=== PATIENT | male | born 1970 | race Caucasian/White ===

== ENCOUNTER → 2019-08-12 12:28 | Outpatient (CLI) | payer SELFPAY | PROVIDERS: PCP Family Medicine; Visit Provider Nurse Practitioner Family | DX: Z02.4 Encounter for examination for driving license (principal) ==

== ENCOUNTER 2020-12-23 23:00 | Inpatient (IN) | payer BC, SELFPAY ==
[2020-12-23 23:13] VITALS: BP 138/98; PULSE 104; RESP 22; TEMP 36.8; O2SAT 99; BMI 20.9
--- NOTE | 2020-12-23 23:22 | CT_ITS ---
PROCEDURE: CT ABDOMEN PELVIS W CON CLINICAL INDICATION: Abd pain Cramping, nausea and vomiting COMPARISON: No exams were available for comparison TECHNIQUE: IV Contrast: 75ML Isovue 370 Oral Contrast None Axial images obtained with sagittal and coronal reformats. All CT scans at the facility use one or more dose reduction, viz: automated exposure control, ma/kV adjustment per patient size (including targeted exams where dose is matched to indication, i.e. head), or iterative reconstruction technique. FINDINGS: LOWER THORAX: Bilateral lower lobe tree in bud like nodular opacities ABDOMEN & PELVIS: Prior cholecystectomy. At least 4 hypodense lesions which may represent hepatics cyst. Small hiatal hernia. The spleen, adrenal glands, pancreas, have an unremarkable appearance. There is a nonobstructing 3 mm stone in the mid polar region of the left kidney. No hydronephrosis. No ureteral calculi. No evidence of appendicitis. There surgical clips in the right lower quadrant. The small bowel is distended with air-fluid levels. Transition point is present in the right mid abdominal region best seen on image 60 series 3 and image 31 series 601. Distal small bowel loops are nondistended. No evidence of pneumatosis or portal venous gas. No abscess. No free air. Small bowel loops measure up to 3.7 cm in diameter. No acute bony findings. There is partial fusion of T11-T12 with mild kyphosis at that level. There are few colonic diverticula but no evidence of diverticulitis. Colonic diverticulosis. No evidence of diverticulitis. IMPRESSION: 1. Findings are compatible with small bowel obstruction moderate grade with transition point in the right mid abdominal region in the mid ileal region. 2. Left nephrolithiasis 3. Small hiatal hernia. 4. Bilateral lower lobe tree in bud opacities consistent with pneumonia Dictated by: Kit Cornejo MD 12/24/2020 06:09 Kit Cornejo MD in [place] 12/24/2020 06:09
[2020-12-23 23:27] LABS: Basophils # 0.1 K/mm3 (0-0.2); Basophils % 0.3 % (0.1-2.0); Eosinophils # 0.2 K/mm3 (0.0-0.4); Eosinophils % 0.9 % (0.1-12.0); Hematocrit 52.5 % (42.0-52.0); Hemoglobin 17.3 g/dL (14.1-18.0); Lymphocytes # 1.5 K/mm3 (0.7-4.5); Lymphocytes % 6.9 % (10-50); Mean Corpuscular HGB Conc 32.9 g/dL (31.8-35.4); Mean Corpuscular Hemoglobin 28.3 pg (27.0-31.2); Mean Corpuscular Volume 86.1 fl (80-94); Mean Platelet Volume 8.6 fl (7.4-10.4); Monocytes # 0.5 K/mm3 (0.1-1.0); Monocytes % 2.2 % (1.7-9.3); Neutrophils # 19.8 K/mm3 (1.8-7.8); Neutrophils % 89.6 % (37.0-80.0); Platelet Count 321 K/mm3 (142-424); Red Cell Distribution Width 13.7 % (11.5-17.5)
[2020-12-23 23:30] LABS: Chloride 104 mmol/L (98-107); Sodium 141 mmol/L (136-145)
[2020-12-23 23:31] LABS: Potassium 4.3 mmoL/L (3.5-5.1); White Blood Count 22.1 K/mm3 (4.8-10.8)
[2020-12-23 23:32] VITALS: BP 132/93; PULSE 85; O2SAT 99
[2020-12-23 23:33] LABS: Alanine Aminotransferase 27 U/L (12-78); Alkaline Phosphatase 66 U/L (38-126); Amylase 131 U/L (30-110); Anion Gap 13.3 mEq/L (5-15); Aspartate Amino Transferase 30 U/L (17-59); Bilirubin,Total 0.9 mg/dl (0.2-1.3); Blood Urea Nitrogen 15 mg/dl (9-20); Carbon Dioxide 28 mmol/L (22.0-30.0); Creatinine Clearance Estimated 54 mL/min (50-200); Estimated Glomerular Filt Rate 54 ml/min (>60); GFR (African American) 65 ML/MIN (>60); MANUAL DIFFERENTIAL MANUAL DIFFERENTIAL (MANUAL DIFF)
[2020-12-23 23:34] LABS: Albumin Level 5.4 g/dl (3.5-5.0); Albumin/Globulin Ratio 1.9 (1.1-1.8); Calcium 11.5 mg/dl (8.4-10.2); Globulin 2.8 g/dL (1.3-3.2); Glucose 145 mg/dl (74-100); Lipase 86 U/L (23-300); Total Protein,Serum 8.2 g/dl (6.3-8.2)
[2020-12-23 23:39] LABS: C-Reactive Protein 1.3 mg/L (0-4)
[2020-12-23 23:54] LABS: Lactic Acid 2.1 mmol/L (0.7-2.1)
[2020-12-23 23:56] LABS: Erythrocyte Sedimentation Rate 3 mm/hr (0-15)
[2020-12-23 23:58] LABS: Lymphocytes % 9 % (10-50); Neutrophils % 88 % (42-76); Platelet Estimate Normal; RBC Morphology Normal; Total Cells Counted 100; Toxic Granulation 1+
[2020-12-24] VITALS (11 sets, daily range): BP systolic 107–140; BP diastolic 56–84; PULSE 63–89; RESP 15–18; TEMP 36.6–36.9; O2SAT 95–99; BMI 19.5
[2020-12-24] LABS: Procalcitonin 0.075 ng/mL (0.0-2.0)
--- NOTE | 2020-12-24 00:14 | HMH.EDNVD ---
ED Disposition Clinical Impression: Small bowel obstruction, SIRS (systemic inflammatory response syndrome) Disposition: Admitted As Inpatient Condition on Discharge: Good Instructions: DI for Acute Abdominal Pain Referrals: Dante Ramirez [Primary Care Provider] - - Critical Care Critical Care Time: No Attestation: On 12/23/20, the high probability of a clinically significant, sudden or life threatening deterioration of the following system(s) required my full and direct attention, intervention and personal management. The time I documented below is in addition to time spent performing reported procedures but includes the following listed in this critical care notation. Medical Decision Making - Medical Records Medical records reviewed: Yes: I reviewed the patient's medical records. - Sg Inquiry Pt receiving controlled substance: No Vital Signs: 12/23/20 23:13 12/23/20 23:32 12/24/20 00:02 Temperature 98.3 F Temperature Source Oral Pulse Rate [Right] 104 H 85 89 Respiratory Rate 22 Blood Pressure [Right Arm] 138/98 H 132/93 H 137/84 Blood Pressure Mean [Right Arm] 111 106 101 Blood Pressure Source [Right Arm] Automatic Cuff Blood Pressure Position [Right Arm] Supine 02 Sat by Pulse Oximetry 99 99 97 Oxygen Delivery Method Room Air 12/24/20 00:32 12/24/20 01:00 12/24/20 01:30 Temperature Temperature Source Pulse Rate [Right] 76 76 78 Respiratory Rate 15 Blood Pressure [Right Arm] 135/74 135/74 124/65 Blood Pressure Mean [Right Arm] 94 94 84 Blood Pressure Source [Right Arm] Automatic Cuff Blood Pressure Position [Right Arm] Supine 02 Sat by Pulse Oximetry 96 96 96 Oxygen Delivery Method Room Air - Lab Data Lab results reviewed: Yes: I reviewed the patient's lab results. Lab Results 12/23/20 23:14: WBC 22.1 H*, RBC 6.10, Hgb 17.3, Hct 52.5 H, MCV 86.1, MCH 28.3, MCHC 32.9, RDW 13.7, Plt Count 321, MPV 8.6, Neut % (Auto) 89.6 H, Lymph % (Auto) 6.9 L, [place] % (Auto) 2.2, Eos % (Auto) 0.9, Baso % (Auto) 0.3, Neut # (Auto) 19.8 H, Lymph # (Auto) 1.5, [place] # (Auto) 0.5, Eos # (Auto) 0.2, Baso # (Auto) 0.1, Total Counted 100, Neutrophils % (Manual) 88 H, Band Neutrophils % 3.0, Lymphocytes % (Manual) 9 L, Toxic Granulation 1+, Platelet Estimate Normal, RBC Morphology Normal, ESR 3 12/23/20 23:14: Sodium 141, Potassium 4.3, Chloride 104, Carbon Dioxide 28, Anion Gap 13.3, BUN 15, Creatinine 1.40 H, Estimated Creat Clear 54, Estimated GFR 54 L, Est GFR ( Amer) 65, Glucose 145 H, Calcium 11.5 H, Total Bilirubin 0.9, AST 30, ALT 27, Alkaline Phosphatase 66, C-Reactive Protein 1.3, Total Protein 8.2, Albumin 5.4 H, Globulin 2.8, Albumin/Globulin Ratio 1.9 H, Amylase 131 H, Lipase 86, Procalcitonin 0.075 12/23/20 23:30: Lactate 2.1 Result diagrams: 12/23/20 23:14 12/23/20 23:14 Orders (Tests/Meds): ED MEDICATIONS Generic Name Dose Route Start Last Admin Trade Name Freq PRN Reason Stop Dose Admin Sodium Chloride 1,000 mls @ 999 mls/hr 12/23/20 23:30 12/23/20 23:34 Sod Chlor 0.9% 1000ml Bag IV 12/24/20 00:30 999 mls/hr .Q1H1M JENNIFER Administration Sodium Chloride 8 ml 12/23/20 23:22 Sodium Chloride 0.9% 10ml Vial IV 01/22/21 23:21 NEEDED PRN dilute pepcid Discontinued Medications Generic Name Dose Route Start Last Admin Trade Name Freq PRN Reason Stop Dose Admin Famotidine 20 mg 12/23/20 23:22 12/23/20 23:33 Famotidine 20mg/2ml Vial IV 12/23/20 23:23 20 mg ONCE ONE Administration Hydromorphone HCl 1 mg 12/24/20 00:21 12/24/20 00:25 Hydromorphone 2mg/Ml Syringe IV 12/24/20 00:22 1 mg ONCE ONE Administration Iopamidol 70 ml 12/23/20 23:58 12/23/20 23:58 Iopamidol-370 (76%);100ml Bottle IV 12/23/20 23:59 70 ml ONCE ONE Administration Ketorolac Tromethamine 30 mg 12/23/20 23:22 12/23/20 23:33 Ketorolac 30mg/Ml Vial IV 12/23/20 23:23 30 mg ONCE ONE Administration Metoclopramide HCl 10 m
[2020-12-24 03:03] LABS: Reflex Lactic Add Lactic Reflex
--- NOTE | 2020-12-24 03:13 | PC.NURSE ---
patient up to floor via wheelchair.
[2020-12-24 03:20] LABS: Lactic Acid Follow Up (RFLX 1) 0.9 mmol/L (0.7-2.1)
--- NOTE | 2020-12-24 05:11 | PC.NURSE ---
pt has been resting since arriving to floor, was uncooperative with admission process and refused to verbally answer questions, has not requested any PRN medications since arriving to floor, abdomen is soft and tender, bowel sounds active
[2020-12-24 06:20] LABS: Anion Gap 9.7 mEq/L (5-15); Blood Urea Nitrogen 17 mg/dl (9-20); Carbon Dioxide 27 mmol/L (22.0-30.0); Chloride 107 mmol/L (98-107); Creatinine Clearance Estimated 54 mL/min (50-200); Estimated Glomerular Filt Rate 59 ml/min (>60); GFR (African American) 71 ML/MIN (>60); Glucose 105 mg/dl (74-100); Potassium 4.7 mmoL/L (3.5-5.1); Sodium 139 mmol/L (136-145)
[2020-12-24 06:31] LABS: Basophils # 0.1 K/mm3 (0-0.2); Basophils % 0.4 % (0.1-2.0); Eosinophils # 0.2 K/mm3 (0.0-0.4); Eosinophils % 1.1 % (0.1-12.0); Hematocrit 42.6 % (42.0-52.0); Lymphocytes # 1.6 K/mm3 (0.7-4.5); Lymphocytes % 10.9 % (10-50); Mean Corpuscular HGB Conc 32.8 g/dL (31.8-35.4); Mean Corpuscular Hemoglobin 28.4 pg (27.0-31.2); Mean Corpuscular Volume 86.6 fl (80-94); Mean Platelet Volume 8.4 fl (7.4-10.4); Monocytes # 0.8 K/mm3 (0.1-1.0); Monocytes % 5.3 % (1.7-9.3); Neutrophils % 82.3 % (37.0-80.0); Platelet Count 241 K/mm3 (142-424); Red Blood Count 4.91 M/mm3 (4.60-6.20); Red Cell Distribution Width 13.8 % (11.5-17.5); White Blood Count 14.6 K/mm3 (4.8-10.8)
[2020-12-24 06:48] LABS: Hemoglobin 13.9 g/dL (14.1-18.0)
--- NOTE | 2020-12-24 07:21 | HMH.PHAVTE ---
[facility] Pharmacy VTE Monitoring - Patient Demographics Admission date: 12/24/20 Report Date: 12/24/20 Time: 07:21 Allergies/Adverse Reactions: Patient Allergies No Known Allergies Allergy (Verified 12/24/20 03:36) Height: 1.68 m Weight: 55.338 kg Patient Problems: Current Active Problems Small bowel obstruction (Acute) SIRS (systemic inflammatory response syndrome) (Acute) - VTE Risk Labs: VTE Related Lab Results Hgb 13.9 g/dL (14.1-18.0) L D 12/24/20 05:47 Hct 42.6 % (42.0-52.0) 12/24/20 05:47 Plt Count 241 K/mm3 (142-424) 12/24/20 05:47 BUN 17 mg/dl (9-20) 12/24/20 05:47 Creatinine 1.30 mg/dl (0.66-1.25) H 12/24/20 05:47 Estimated Creat Clear 54 mL/min (50-200) 12/24/20 05:47 Was VTE Risk Assessment Performed: Yes VTE Score: 3 VTE Risk Level: Low Risk Clinical Trial Participant: No - Prophylaxis VTE Prophylaxis Ordered?: Yes Types of VTE Prophylaxis: TEDS Knee High
--- NOTE | 2020-12-24 08:36 | HMH.GSCON ---
*Admission Date: 12/24/20 *Reason for consult:: Possible small bowel obstruction *History of present illness: Patient is a 50-year-old male. He had presented to the emergency department yesterday with nausea, reported vomiting, and cramping abdominal pain. When asked how long the patient has had pain he states that he has had some degree of abdominal pain for 2 years. He underwent laparoscopic colon resection for diverticulitis. He is unsure as to where this was performed but he believes it was in [facility]. He was evaluated in the emergency department and found to have a leukocytosis. CT scan revealed findings suggestive of small bowel obstruction. He did have normal bowel movements yesterday. He states he has no pain at this time. Review of Systems - Review of Systems Review of systems:: pertinent systems reviewed and negative unless documented below - *Neurologic Denies localized weakness, Denies seizure-like activity [facility] History I have reviewed the patient's past medical history: Yes Medical History: Denies:: Cancer, Diabetes Mellitus Type 1, Diabetes Mellitus Type 2, MRSA *Have you ever received a pneumonia vaccine?: No *Have you received a flu vaccine this season?: No Amputation: No Fractures: No - *Social History Alcohol Intake: never *Occupational Status:: employed *Travel in the last 8 weeks: None Family Hx:: Unable to obtain Meds Home Medications Medication Instructions Recorded Confirmed Type No Known Home Medications 12/24/20 12/24/20 History Allergies Allergy/AdvReac Type Severity Reaction Status Date / Time No Known Allergies Allergy Verified 12/24/20 03:36 Exam Vital signs and Labs for Last 24 Hours: Temp Pulse Resp BP Pulse Ox 98.3 F 65 18 107/56 L 98 12/24/20 08:00 12/24/20 08:00 12/24/20 08:00 12/24/20 08:00 12/24/20 08:00 Laboratory Results - last 24 hr 12/23/20 23:14: WBC 22.1 H*, RBC 6.10, Hgb 17.3, Hct 52.5 H, MCV 86.1, MCH 28.3, MCHC 32.9, RDW 13.7, Plt Count 321, MPV 8.6, Neut % (Auto) 89.6 H, Lymph % (Auto) 6.9 L, [place] % (Auto) 2.2, Eos % (Auto) 0.9, Baso % (Auto) 0.3, Neut # (Auto) 19.8 H, Lymph # (Auto) 1.5, [place] # (Auto) 0.5, Eos # (Auto) 0.2, Baso # (Auto) 0.1, Total Counted 100, Neutrophils % (Manual) 88 H, Band Neutrophils % 3.0, Lymphocytes % (Manual) 9 L, Toxic Granulation 1+, Platelet Estimate Normal, RBC Morphology Normal, ESR 3 12/23/20 23:14: Sodium 141, Potassium 4.3, Chloride 104, Carbon Dioxide 28, Anion Gap 13.3, BUN 15, Creatinine 1.40 H, Estimated Creat Clear 54, Estimated GFR 54 L, Est GFR ( Amer) 65, Glucose 145 H, Calcium 11.5 H, Total Bilirubin 0.9, AST 30, ALT 27, Alkaline Phosphatase 66, C-Reactive Protein 1.3, Total Protein 8.2, Albumin 5.4 H, Globulin 2.8, Albumin/Globulin Ratio 1.9 H, Amylase 131 H, Lipase 86, Procalcitonin 0.075 12/23/20 23:30: Lactate 2.1 12/24/20 03:05: Lactate 0.9 12/24/20 05:47: WBC 14.6 H D, RBC 4.91, Hgb 13.9 L D, Hct 42.6, MCV 86.6, MCH 28.4, MCHC 32.8, RDW 13.8, Plt Count 241, MPV 8.4, Neut % (Auto) 82.3 H, Lymph % (Auto) 10.9, [place] % (Auto) 5.3, Eos % (Auto) 1.1, Baso % (Auto) 0.4, Neut # (Auto) 12.0 H, Lymph # (Auto) 1.6, [place] # (Auto) 0.8, Eos # (Auto) 0.2, Baso # (Auto) 0.1 12/24/20 05:47: Sodium 139, Potassium 4.7, Chloride 107, Carbon Dioxide 27, Anion Gap 9.7, BUN 17, Creatinine 1.30 H, Estimated Creat Clear 54, Estimated GFR 59, Est GFR ( Amer) 71, Glucose 105 H D, Calcium 9.0 D I & O for Last 24 hours: Intake & Output 12/21/20 12/22/20 12/23/20 12/24/20 11:59 11:59 11:59 11:59 Intake Total 1000 / 1000 Balance 1000 / 1000 Weight 122 lb Microbiology Reports for the Last 24 Hours: Microbiology 12/23/20 23:30 Nasopharyngeal Coronavirus COVID-19 PCR - Final - Constitutional no acute distress - *Routine HEENT Exam Head: Present: normocephalic Eye: Present: EOMI, PERRL ENT: Present: mucous membranes moist - *Routine Neck Exam Present: supple. Absent
--- NOTE | 2020-12-24 08:45 | HMH.HP ---
*Admission Date: 12/24/20 *Chief complaint: abd pain *History of present illness: 50-year-old male presented to the emergency department yesterday with nausea, reported vomiting, and cramping abdominal pain with 2 bm. Pt states pain in abd has been coming and going for a few years but recently it has gotten worse.pt states today was the worst he had. CT scan revealed findings suggestive of small bowel obstruction. Patient was admitted and surgery consult obtained. [facility] History I have reviewed the patient's past medical history: Yes Medical History: Denies:: Cancer, Diabetes Mellitus Type 1, Diabetes Mellitus Type 2, MRSA *Have you ever received a pneumonia vaccine?: No *Have you received a flu vaccine this season?: No Amputation: No Fractures: No - *Social History Alcohol Intake: never *Occupational Status:: employed *Travel in the last 8 weeks: None Family Hx:: Unable to obtain Review of Systems - Constitutional Denies anorexia, Denies chills - Eyes Denies change in vision - ENT Denies pain with swallowing - *Cardiovascular Denies chest pain with activity - *Respiratory Denies chest congestion - *Gastrointestinal Reports abdominal pain, Reports cramping, Reports nausea, Reports vomiting - *Genitourinary Denies urinary urgency - *Musculoskeletal Denies back pain - Integumentary/Breasts Denies skin pain - *Neurologic Denies abnormal movements, Denies localized weakness, Denies seizure-like activity - Psychiatric Denies anxiety - Endocrine Denies flushing - Hematologic/Lymphatic Denies enlarged lymph nodes - Allergic/Immunologic Denies lip swelling Meds Home Medications Medication Instructions Recorded Confirmed Type No Known Home Medications 12/24/20 12/24/20 History Allergies Allergy/AdvReac Type Severity Reaction Status Date / Time No Known Allergies Allergy Verified 12/24/20 03:36 Exam Vital signs and Labs for Last 24 Hours: Temp Pulse Resp BP Pulse Ox 98.3 F 65 18 107/56 L 98 12/24/20 08:00 12/24/20 08:00 12/24/20 08:00 12/24/20 08:00 12/24/20 08:00 Laboratory Results - last 24 hr 12/23/20 23:14: WBC 22.1 H*, RBC 6.10, Hgb 17.3, Hct 52.5 H, MCV 86.1, MCH 28.3, MCHC 32.9, RDW 13.7, Plt Count 321, MPV 8.6, Neut % (Auto) 89.6 H, Lymph % (Auto) 6.9 L, [place] % (Auto) 2.2, Eos % (Auto) 0.9, Baso % (Auto) 0.3, Neut # (Auto) 19.8 H, Lymph # (Auto) 1.5, [place] # (Auto) 0.5, Eos # (Auto) 0.2, Baso # (Auto) 0.1, Total Counted 100, Neutrophils % (Manual) 88 H, Band Neutrophils % 3.0, Lymphocytes % (Manual) 9 L, Toxic Granulation 1+, Platelet Estimate Normal, RBC Morphology Normal, ESR 3 12/23/20 23:14: Sodium 141, Potassium 4.3, Chloride 104, Carbon Dioxide 28, Anion Gap 13.3, BUN 15, Creatinine 1.40 H, Estimated Creat Clear 54, Estimated GFR 54 L, Est GFR ( Amer) 65, Glucose 145 H, Calcium 11.5 H, Total Bilirubin 0.9, AST 30, ALT 27, Alkaline Phosphatase 66, C-Reactive Protein 1.3, Total Protein 8.2, Albumin 5.4 H, Globulin 2.8, Albumin/Globulin Ratio 1.9 H, Amylase 131 H, Lipase 86, Procalcitonin 0.075 12/23/20 23:30: Lactate 2.1 12/24/20 03:05: Lactate 0.9 12/24/20 05:47: WBC 14.6 H D, RBC 4.91, Hgb 13.9 L D, Hct 42.6, MCV 86.6, MCH 28.4, MCHC 32.8, RDW 13.8, Plt Count 241, MPV 8.4, Neut % (Auto) 82.3 H, Lymph % (Auto) 10.9, [place] % (Auto) 5.3, Eos % (Auto) 1.1, Baso % (Auto) 0.4, Neut # (Auto) 12.0 H, Lymph # (Auto) 1.6, [place] # (Auto) 0.8, Eos # (Auto) 0.2, Baso # (Auto) 0.1 12/24/20 05:47: Sodium 139, Potassium 4.7, Chloride 107, Carbon Dioxide 27, Anion Gap 9.7, BUN 17, Creatinine 1.30 H, Estimated Creat Clear 54, Estimated GFR 59, Est GFR ( Amer) 71, Glucose 105 H D, Calcium 9.0 D I & O for Last 24 hours: Intake & Output 12/21/20 12/22/20 12/23/20 12/24/20 11:59 11:59 11:59 11:59 Intake Total 1000 / 1000 Balance 1000 / 1000 Weight 122 lb Microbiology Reports for the Last 24 Hours: Microbiology 12/23/20 23:30 Nasophary
--- NOTE | 2020-12-24 18:07 | PC.NURSE ---
HE IS AO, DOES NOT REQUIRE O2 SUPPORT, ONE EPISODE OF N/V THIS SHIFT, MEDICATED WITH PRN ZOFRAN PER MAR WITH GOOD EFFECTIVENESS, USES URINAL INDEPENDENTLY. NO BM NOTED.
[2020-12-25 04:00] VITALS: BP 124/66; PULSE 88; RESP 17; TEMP 36.5; O2SAT 97
[2020-12-25 05:14] VITALS: BMI 19.5
--- NOTE | 2020-12-25 05:46 | PC.NURSE ---
shift summary pts lung sounds are clear with sats maintained 95% or above on room air witha a rate ranging from 16-18. pt is alert andoriented X4. pt denies pain, nausea, vomiting, or diarrhea. pt states when he drinks anything his stomach starts to cramp, but does have active bowel sounds.
--- NOTE | 2020-12-25 06:45 | HMH.GSPN ---
Subjective Narrative: Patient describes his abdomen being sore . He apparently did have vomiting with clear liquids last night. Does not have any NG tube. Progress Note: A&P (1) Small bowel obstruction Status: Acute (2) History of diverticulitis Status: Acute Assessment and Plan for All Diagnoses:: NPO. Plan for small bowel follow-through. May need nasogastric tube and possible operative intervention. Exam Vital signs and Labs for Last 24 Hours: Temp Pulse Resp BP Pulse Ox 97.7 F 88 17 124/66 97 12/25/20 04:00 12/25/20 04:00 12/25/20 04:00 12/25/20 04:00 12/25/20 04:00 Laboratory Results - last 24 hr 12/24/20 05:47: Hgb 13.9 L D 12/24/20 05:47: Calcium 9.0 D I & O for Last 24 hours: Intake & Output 12/22/20 12/23/20 12/24/20 12/25/20 11:59 11:59 11:59 11:59 Intake Total 1000 / 1000 720 / 720 Balance 1000 / 1000 720 / 720 Weight 122 lb 121 lb 15.99 oz Microbiology Reports for the Last 24 Hours: Microbiology 12/23/20 23:45 Blood Blood Culture - Preliminary 12/23/20 23:30 Nasopharyngeal Coronavirus COVID-19 PCR - Final - *Routine Abdominal Exam Comments: Tender in the right lower quadrant.
--- NOTE | 2020-12-25 06:46 | FL_ITS ---
PROCEDURE: FL SMALL BOWEL FOLLOW THROUGH CLINICAL INDICATION: BOWEL OBSTRUCTION identified on CT abdomen and pelvis study 12/24/2019 COMPARISON: CT CT ABDOMEN PELVIS W CON from 12/23/2020 FINDINGS: The rehabilitation manager film shows scattered stool and gas in the upper ascending colon, transverse, descending and sigmoid colon. Surgical clips are seen right upper quadrant likely from previous cholecystectomy. There is a 1 or 2 loops of mildly dilated small bowel in the mid abdomen. The initial films taken medially after drinking barium shows a small sliding hiatal hernia and grossly normal appearing stomach. Follow-up films show progression of barium through mildly dilated loops of proximal and mid small bowel. There appears to be a transition zone in the mid to lower right quadrant with normal caliber small bowel distal to this transition point. Barium reaches the cecum and ascending colon by 3 hours. A 4.5 hour delayed film was obtained showing barium contrast opacifying the ascending and transverse colon descending and somewhat redone appearing sigmoid colon. There is only a slight interval decrease in caliber dilated proximal and mid small bowel on the delayed images. IMPRESSION: Apparent interval resolution of partial mechanical small bowel obstruction likely secondary to adhesions right lower quadrant in view the patient's history of multiple previous surgeries. Dictated by: Dr. Christiano Hawkins MD 12/25/2020 13:20 Dr. Christiano Hawkins MD in [place] 12/25/2020 13:20
[2020-12-25 07:00] LABS: Basophils # 0.1 K/mm3 (0-0.2); Basophils % 0.5 % (0.1-2.0); Eosinophils # 0.3 K/mm3 (0.0-0.4); Eosinophils % 2.7 % (0.1-12.0); Hematocrit 40.5 % (42.0-52.0); Hemoglobin 13.5 g/dL (14.1-18.0); Lymphocytes # 1.6 K/mm3 (0.7-4.5); Mean Corpuscular HGB Conc 33.3 g/dL (31.8-35.4); Mean Corpuscular Hemoglobin 29.1 pg (27.0-31.2); Mean Corpuscular Volume 87.5 fl (80-94); Mean Platelet Volume 8.5 fl (7.4-10.4); Monocytes # 0.6 K/mm3 (0.1-1.0); Monocytes % 6.2 % (1.7-9.3); Neutrophils # 7.3 K/mm3 (1.8-7.8); Neutrophils % 74.6 % (37.0-80.0); Platelet Count 223 K/mm3 (142-424); Red Blood Count 4.63 M/mm3 (4.60-6.20); Red Cell Distribution Width 13.6 % (11.5-17.5); White Blood Count 9.7 K/mm3 (4.8-10.8)
[2020-12-25 07:21] LABS: Anion Gap 5.1 mEq/L (5-15); Blood Urea Nitrogen 14 mg/dl (9-20); Calcium 8.6 mg/dl (8.4-10.2); Carbon Dioxide 28 mmol/L (22.0-30.0); Chloride 109 mmol/L (98-107); Creatinine Clearance Estimated 59 mL/min (50-200); Estimated Glomerular Filt Rate 65 ml/min (>60); GFR (African American) 78 ML/MIN (>60); Glucose 94 mg/dl (74-100); Potassium 4.1 mmoL/L (3.5-5.1); Sodium 138 mmol/L (136-145)
[2020-12-25 08:00] VITALS: BP 110/55; PULSE 75; RESP 16; TEMP 36.9; O2SAT 98
--- NOTE | 2020-12-25 08:01 | PC.NURSE ---
pt to radiology at this time
--- NOTE | 2020-12-25 08:31 | HMH.ACPN2 ---
Internal Medicine - PN: Subj *Date: 12/25/20 *Time: 19:53 Interval history: 50-year-old patient sitting up and bed respirations are easy and even, he reports he feels a little bit better today still reports pain in right upper quadrant of abdomen. He is afebrile, oxygen saturations 98% on room air, will be going for small bowel follow-through today. Exam Vital signs and Labs for Last 24 Hours: Temp Pulse Resp BP Pulse Ox 97.7 F 88 17 124/66 97 12/25/20 04:00 12/25/20 04:00 12/25/20 04:00 12/25/20 04:00 12/25/20 04:00 Laboratory Results - last 24 hr 12/25/20 06:43: WBC 9.7 D, RBC 4.63, Hgb 13.5 L, Hct 40.5 L, MCV 87.5, MCH 29.1, MCHC 33.3, RDW 13.6, Plt Count 223, MPV 8.5, Neut % (Auto) 74.6, Lymph % (Auto) 16.0, [place] % (Auto) 6.2, Eos % (Auto) 2.7, Baso % (Auto) 0.5, Neut # (Auto) 7.3, Lymph # (Auto) 1.6, [place] # (Auto) 0.6, Eos # (Auto) 0.3, Baso # (Auto) 0.1 12/25/20 06:43: Sodium 138, Potassium 4.1, Chloride 109 H, Carbon Dioxide 28, Anion Gap 5.1, BUN 14, Creatinine 1.20, Estimated Creat Clear 59, Estimated GFR 65, Est GFR ( Amer) 78, Glucose 94, Calcium 8.6 I & O for Last 24 hours: Intake & Output 12/22/20 12/23/20 12/24/20 12/25/20 23:59 23:59 23:59 23:59 Intake Total 1720 / 1720 Balance 1720 / 1720 Weight 130 lb 122 lb 121 lb 15.99 oz Microbiology Reports for the Last 24 Hours: Microbiology 12/23/20 23:45 Blood Blood Culture - Preliminary - Constitutional no acute distress - *Routine HEENT Exam Head: Present: normocephalic Eye: Present: EOMI ENT: Present: mucous membranes moist - *Routine Neck Exam Present: trachea midline. Absent: tracheal deviation - *Routine Respiratory Exam Present: CTA bilaterally. Absent: accessory muscle use - *Routine Cardiovascular Exam Present: RRR - *Routine Abdominal Exam Present: soft, normoactive bowel sounds, tenderness. Absent: distended, firm Comments: Tenderness in RUQ - *Routine Extremities Exam Present: full ROM, pulses intact. Absent: cyanosis, clubbing, calf tenderness - *Routine Skin Exam Present: intact, dry, warm. Absent: cyanosis, erythema - *Routine Neurological Exam Present: alert, oriented X3, moving all extremities. Absent: altered mental status - Routine Psychiatric Exam Present: normal affect, normal thought process. Absent: auditory hallucinations, visual hallucinations Assessment and Plan (1) Small bowel obstruction Status: Acute Category: Medical Code(s): K56.609 - Unspecified intestinal obstruction, unspecified as to partial versus complete obstruction (2) History of diverticulitis Status: Acute Category: Medical Code(s): Z87.19 - Personal history of other diseases of the digestive system - Assessment and plan all Dx Assessment and Plan for all problems:: Rounded with Dr. Dawn, all orders per Dr. Dawn: 1. For small bowel follow-through this morning
--- NOTE | 2020-12-25 14:31 | PC.NURSE ---
PT HAS BEEN AOX4 T/O SHIFT, HE IS ABLE TO MAKE NEEDS KNOWN TO STAFF, HE HAS NOT REQUIRED O2 SUPPORT, HE DID C/O ABD PAIN THIS AM AND WAS MEDICATED WITH MORPHINE PRN PER MAR WITH GOOD EFFECTIVENESS NOTED, HE DENIES N/V/D AND HAS NOT HAD A BOWEL MOVEMENT, BOWEL SOUNDS ARE PRESENTX4, ABD IS SOFT AND TENDER ON PALPATION, PT HAS FAVORED LAYING ON HIS SIDE AND STATES THAT IT HELPS HIS PAIN, HE HAS BEEN USING THE URINAL AND TOILET FOR ELIMINATION AND AMBULATED WITH STANDBY ASSIST. NO NEEDS AT THIS TIME WILL CONTINUE TO MONITOR PT.
[2020-12-25 16:00] VITALS: BP 135/80; PULSE 92; RESP 16; TEMP 36.6; O2SAT 99
--- NOTE | 2020-12-25 16:54 | HMH.GSPN ---
Subjective Narrative: Patient still does complain of abdominal soreness. He has passed some gas and had a small bowel movement. I reviewed his small bowel follow-through with radiology. This reveals dramatic improvement with no evidence of any appreciable small bowel dilatation with contrast through to the colon with no evidence of any obstruction. Progress Note: A&P (1) Small bowel obstruction Status: Acute (2) History of diverticulitis Status: Acute Assessment and Plan for All Diagnoses:: Small bowel follow-through shows significant improvement with no evidence of any obstruction. However, given the patient's ongoing symptomatology we will plan for continued bowel rest for now. Possibly start a limited diet tomorrow if he continues to improve. Exam Vital signs and Labs for Last 24 Hours: Temp Pulse Resp BP Pulse Ox 98.4 F 75 16 110/55 L 98 12/25/20 08:00 12/25/20 08:00 12/25/20 08:00 12/25/20 08:00 12/25/20 08:00 Laboratory Results - last 24 hr 12/25/20 06:43: WBC 9.7 D, RBC 4.63, Hgb 13.5 L, Hct 40.5 L, MCV 87.5, MCH 29.1, MCHC 33.3, RDW 13.6, Plt Count 223, MPV 8.5, Neut % (Auto) 74.6, Lymph % (Auto) 16.0, [place] % (Auto) 6.2, Eos % (Auto) 2.7, Baso % (Auto) 0.5, Neut # (Auto) 7.3, Lymph # (Auto) 1.6, [place] # (Auto) 0.6, Eos # (Auto) 0.3, Baso # (Auto) 0.1 12/25/20 06:43: Sodium 138, Potassium 4.1, Chloride 109 H, Carbon Dioxide 28, Anion Gap 5.1, BUN 14, Creatinine 1.20, Estimated Creat Clear 59, Estimated GFR 65, Est GFR ( Amer) 78, Glucose 94, Calcium 8.6 I & O for Last 24 hours: Intake & Output 12/23/20 12/24/20 12/25/20 12/26/20 11:59 11:59 11:59 11:59 Intake Total 1000 / 1000 720 / 720 420 / 420 Output Total 0 / 0 Balance 1000 / 1000 720 / 720 420 / 420 Weight 122 lb 121 lb 15.99 oz Microbiology Reports for the Last 24 Hours: Microbiology 12/23/20 23:45 Blood Blood Culture - Preliminary - *Routine Abdominal Exam Present: soft, distended
[2020-12-25 19:32] VITALS: BP 144/92; PULSE 90; RESP 18; TEMP 36.7; O2SAT 96
[2020-12-26 04:00] VITALS: BP 123/82; PULSE 63; RESP 18; TEMP 36.3; O2SAT 98
--- NOTE | 2020-12-26 04:23 | PC.NURSE ---
pt has rested well throughout shift, pt is alert and oriented and able to make needs known, lungs remain clear, heart regular, bs hypoactive throughout, pt denies n/v/diarrhea this shift, pt does complain of abdominal tenderness in RLQ and around umbilicus, pt refused pain medication to treat abdominal tenderness, pt has remained npo, iv patent no distress noted will continue to monitor at this time
[2020-12-26 05:14] VITALS: BMI 20.2
--- NOTE | 2020-12-26 05:36 | PC.NURSE ---
pt taken to xray at this time via wheelchair
--- NOTE | 2020-12-26 05:58 | PC.NURSE ---
pt back from radiology at this time
--- NOTE | 2020-12-26 06:00 | XR_ITS ---
PROCEDURE: XR ABDOMEN MIN 2V CLINICAL INDICATION: Bowel obstruction COMPARISON: CR,RF FL SMALL BOWEL FOLLOW THROUGH from 12/25/2020 FINDINGS: Barium is present throughout the colon. Only minimal amount of contrast is present in the distal ileum which is nondistended. There are some gas-filled loops of small bowel in the upper abdomen which appear less distended. No evidence of free air. There has been a prior cholecystectomy. IMPRESSION: Oral contrast from the small-bowel series is now nearly exclusively in the large bowel. No definite evidence of small-bowel obstruction Dictated by: Kit Cornejo MD 12/26/2020 06:19 Kit Cornejo MD in [place] 12/26/2020 06:19
--- NOTE | 2020-12-26 06:55 | P.PN_ITS ---
Subjective Patient reports: feels better Narrative: Patient states that he feels a lot better. He did have a bowel movement this morning. This had relieved his discomfort. No nausea. Small bowel follow- through yesterday revealed no evidence of any obstruction. Follow-up films this morning reveal contrast completely through to the colon without any obstruction. Progress Note: A&P (1) Small bowel obstruction Status: Acute (2) History of diverticulitis Status: Acute Assessment and Plan for All Diagnoses:: I will go ahead and give a full liquid diet. If he tolerates this may be able to discharge soon. Exam Vital signs and Labs for Last 24 Hours: Temp Pulse Resp BP Pulse Ox 97.4 F L 63 18 123/82 98 12/26/20 04:00 12/26/20 04:00 12/26/20 04:00 12/26/20 04:00 12/26/20 04:00 Laboratory Results - last 24 hr 12/25/20 06:43: WBC 9.7 D, RBC 4.63, Hgb 13.5 L, Hct 40.5 L, MCV 87.5, MCH 29.1, MCHC 33.3, RDW 13.6, Plt Count 223, MPV 8.5, Neut % (Auto) 74.6, Lymph % (Auto) 16.0, [place] % (Auto) 6.2, Eos % (Auto) 2.7, Baso % (Auto) 0.5, Neut # (Auto) 7.3, Lymph # (Auto) 1.6, [place] # (Auto) 0.6, Eos # (Auto) 0.3, Baso # (Auto) 0.1 12/25/20 06:43: Sodium 138, Potassium 4.1, Chloride 109 H, Carbon Dioxide 28, Anion Gap 5.1, BUN 14, Creatinine 1.20, Estimated Creat Clear 59, Estimated GFR 65, Est GFR ( Amer) 78, Glucose 94, Calcium 8.6 I & O for Last 24 hours: Intake & Output 12/23/20 12/24/20 12/25/20 12/26/20 11:59 11:59 11:59 11:59 Intake Total 1000 / 1000 720 / 720 420 / 420 Output Total 0 / 0 Balance 1000 / 1000 720 / 720 420 / 420 Weight 122 lb 121 lb 15.99 oz 126 lb Microbiology Reports for the Last 24 Hours: Microbiology 12/23/20 23:45 Blood Blood Culture - Preliminary NO GROWTH AFTER 48 HOURS 12/23/20 23:45 Blood Blood Culture - Preliminary - *Routine Abdominal Exam Present: soft. Absent: tenderness
[2020-12-26 07:31] LABS: Basophils % 0.4 % (0.1-2.0); Eosinophils # 0.2 K/mm3 (0.0-0.4); Eosinophils % 3.2 % (0.1-12.0); Hematocrit 42.4 % (42.0-52.0); Hemoglobin 13.7 g/dL (14.1-18.0); Lymphocytes # 1.3 K/mm3 (0.7-4.5); Lymphocytes % 20.7 % (10-50); Mean Corpuscular HGB Conc 32.3 g/dL (31.8-35.4); Mean Corpuscular Hemoglobin 28.4 pg (27.0-31.2); Mean Corpuscular Volume 87.9 fl (80-94); Mean Platelet Volume 8.6 fl (7.4-10.4); Monocytes # 0.4 K/mm3 (0.1-1.0); Monocytes % 5.5 % (1.7-9.3); Neutrophils # 4.4 K/mm3 (1.8-7.8); Neutrophils % 70.3 % (37.0-80.0); Platelet Count 207 K/mm3 (142-424); Red Blood Count 4.82 M/mm3 (4.60-6.20); Red Cell Distribution Width 13.6 % (11.5-17.5); White Blood Count 6.3 K/mm3 (4.8-10.8)
[2020-12-26 07:37] LABS: Anion Gap 14.1 mEq/L (5-15); Blood Urea Nitrogen 14 mg/dl (9-20); Calcium 8.8 mg/dl (8.4-10.2); Carbon Dioxide 24 mmol/L (22.0-30.0); Chloride 105 mmol/L (98-107); Creatinine Clearance Estimated 73 mL/min (50-200); Estimated Glomerular Filt Rate 80 ml/min (>60); GFR (African American) 97 ML/MIN (>60); Glucose 76 mg/dl (74-100); Potassium 4.1 mmoL/L (3.5-5.1); Sodium 139 mmol/L (136-145)
[2020-12-26 08:00] VITALS: BP 150/82; PULSE 93; RESP 18; TEMP 36.8; O2SAT 97
--- NOTE | 2020-12-26 09:25 | HMH.DCSUM ---
General - General Admission date:: 12/24/20 Discharge date: 12/26/20 HPI HPI: 50-year-old male presented to the emergency department yesterday with nausea, reported vomiting, and cramping abdominal pain with 2 bm. Pt states pain in abd has been coming and going for a few years but recently it has gotten worse.pt states today was the worst he had. CT scan revealed findings suggestive of small bowel obstruction. Patient was admitted and surgery consult obtained. Hospital Course Hospital Course: 50-year-old male presented to the emergency department yesterday with nausea, reported vomiting, and cramping abdominal pain with 2 bm. Pt states pain in abd has been coming and going for a few years but recently it has gotten worse.pt states today was the worst he had. CT scan revealed findings suggestive of small bowel obstruction. Patient was admitted and surgery consult obtained. 12/23/20 Abd/Pelvis CT: IMPRESSION: 1. Findings are compatible with small bowel obstruction moderate grade with transition point in the right mid abdominal region in the mid ileal region. 2. Left nephrolithiasis 3. Small hiatal hernia. 4. Bilateral lower lobe tree in bud opacities consistent with pneumonia Dictated by: Clemente, 12/25/20 UGI and Small Bowel XR: FINDINGS: The law enforcement instructor film shows scattered stool and gas in the upper ascending colon, transverse, descending and sigmoid colon. Surgical clips are seen right upper quadrant likely from previous cholecystectomy. There is a 1 or 2 loops of mildly dilated small bowel in the mid abdomen. The initial films taken medially after drinking barium shows a small sliding hiatal hernia and grossly normal appearing stomach. Follow-up films show progression of barium through mildly dilated loops of proximal and mid small bowel. There appears to be a transition zone in the mid to lower right quadrant with normal caliber small bowel distal to this transition point. Barium reaches the cecum and ascending colon by 3 hours. A 4.5 hour delayed film was obtained showing barium contrast opacifying the ascending and transverse colon descending and somewhat redone appearing sigmoid colon. There is only a slight interval decrease in caliber dilated proximal and mid small bowel on the delayed images. IMPRESSION: Apparent interval resolution of partial mechanical small bowel obstruction likely secondary to adhesions right lower quadrant in view the patient's history of multiple previous surgeries. Dictated by: Shruthi, 12/26/20 Abd XR: FINDINGS: Barium is present throughout the colon. Only minimal amount of contrast is present in the distal ileum which is nondistended. There are some gas-filled loops of small bowel in the upper abdomen which appear less distended. No evidence of free air. There has been a prior cholecystectomy. IMPRESSION: Oral contrast from the small-bowel series is now nearly exclusively in the large bowel. No definite evidence of small-bowel obstruction Dictated by: Clemente, Lab work today is all unremarkable Patient sitting up in bed denies any abdominal pain reports he is feeling better is passing gas and has had 2 bowel movements during the night. He reports he would like to go home, discharge discussed with patient, he has tolerated a regular diet without any difficulties and denies any pain or nausea. Gen Surg has seen and recommends: Patient states that he feels a lot better. He did have a bowel movement this morning. This had relieved his discomfort. No nausea. Small bowel follow-through yesterday revealed no evidence of any obstruction. Follow-up films this morning reveal contrast completely through to the colon without any obstruction. Plan: 1. We will discharge home 2. Follow-up with PCP in 2 weeks Objective Vital signs: Temp Pulse Resp BP Pulse Ox 98.2 F 93 H 18 150/82 H 97 12/26/20 08:00
--- NOTE | 2020-12-26 12:42 | DIET.NUTRFU ---
Pt tolerating full liquids well, denies abdominal s/s. Has had a BM. Pt has received diet education for low fiber/residue diet and encouraged to reach out with questions/concerns any time post dc.
== END 2020-12-26 13:30 | disposition home or self-care (01) | DRG 390 ==
LOC: ER 23:23 → 2ND 12-24 01:44
PROVIDERS: Nurse Practitioner Family; Admitting Provider Emergency Medicine; Emergency Provider Emergency Medicine; PCP Family Medicine; Visit Provider Emergency Medicine
DX: K56.690 Other partial intestinal obstruction (principal); Z90.49 Acquired absence of other specified parts of digestive tract
CPT/HCPCS: 36415; 74019; 74177; 74250; 80048; 80053; 82150; 83605; 83690; 84145; 85007; 85025; 85651; 86140; 87040; 87077; 87186; 96365; 96375; 99285; J2405; Q9967; U0003

== ENCOUNTER 2022-06-08 12:53 | Emergency (ER) | payer OTHER, SELFPAY ==
[2022-06-08 12:54] VITALS: BP 114/71; PULSE 92; RESP 18; TEMP 38.4; O2SAT 99; BMI 20.9
--- NOTE | 2022-06-08 12:56 | PC.NURSE ---
pt ambulatory to ED room 8 without complications from waiting room area
--- NOTE | 2022-06-08 12:59 | ECG_ITS ---
APPROVED REPORT Exam: Resting ECG HR:93 bpm ECG Measurements Heart Rate 93 AXES CO 138 P 80 QRSd 88 QRS 92 QT 329 T 73 QTc 379 Conclusion SINUS RHYTHM BORDERLINE RIGHT AXIS DEVIATION [QRS AXIS > 90] BORDERLINE ECG UNCONFIRMED REPORT Electronically signed by : Remy Li MD 06/08/2022 19:02:33
--- NOTE | 2022-06-08 13:05 | PC.NURSE ---
Patient is refusing to have covid swab done. ER MD is aware
[2022-06-08 13:15] VITALS: PULSE 92; O2SAT 99
--- NOTE | 2022-06-08 13:39 | HMH.EDGENADL ---
ED Disposition Clinical Impression: Vasovagal syncope Disposition: Home, Self-Care Condition on Discharge: Good Additional Instructions: Follow-up with your primary care provider regarding this visit to the emergency department and follow-up on kidney function and dehydration. If you have any other concerning symptoms, return to the emergency department or your primary care provider for further evaluation. Referrals: Provider,Referral, [Primary Care Provider] - - Critical Care Critical Care Time: No Attestation: On 06/08/22, the high probability of a clinically significant, sudden or life threatening deterioration of the following system(s) required my full and direct attention, intervention and personal management. The time I documented below is in addition to time spent performing reported procedures but includes the following listed in this critical care notation. Medical Decision Making - Sg Inquiry Pt receiving controlled substance: No Vital Signs: 06/08/22 12:54 06/08/22 13:15 06/08/22 14:00 Temperature 101.1 F H Temperature Source Oral Pulse Rate 92 H 79 Pulse Rate [Left Radial] 92 H Respiratory Rate 18 Blood Pressure Blood Pressure [Right Arm] 114/71 Blood Pressure Mean [Right Arm] 85 Blood Pressure Source [Right Arm] Automatic Cuff Blood Pressure Position [Right Arm] Sitting 02 Sat by Pulse Oximetry 99 99 97 Oxygen Delivery Method Room Air Room Air Room Air 06/08/22 14:30 06/08/22 15:03 06/08/22 15:32 Temperature 99 F Temperature Source Pulse Rate 82 67 79 Pulse Rate [Left Radial] Respiratory Rate 19 Blood Pressure 120/77 Blood Pressure [Right Arm] Blood Pressure Mean [Right Arm] Blood Pressure Source [Right Arm] Blood Pressure Position [Right Arm] 02 Sat by Pulse Oximetry 97 98 Oxygen Delivery Method Room Air - Lab Data Lab Results 06/08/22 14:13: WBC 6.4, RBC 5.12, Hgb 14.5, Hct 45.3, MCV 88.4, MCH 28.2, MCHC 31.9, RDW 14.0, Plt Count 220, MPV 9.0, Neut % (Auto) 79.2, Lymph % (Auto) 8.6 L, [place] % (Auto) 7.8, Eos % (Auto) 1.9, Baso % (Auto) 2.5 H, Neut # (Auto) 5.1, Lymph # (Auto) 0.5 L, [place] # (Auto) 0.5, Eos # (Auto) 0.1, Baso # (Auto) 0.2 06/08/22 14:13: Sodium 138, Potassium 4.8, Chloride 103, Carbon Dioxide 28, Anion Gap 11.8, BUN 10, Creatinine 1.50 H, Estimated Creat Clear 50, Estimated GFR 50 L, Est GFR ( Amer) 60, Glucose 97, Calcium 9.2, Total Bilirubin < 0.1 L, AST 48, ALT 57, Alkaline Phosphatase 69, Total Protein 6.3, Albumin 4.0, Globulin 2.3, Albumin/Globulin Ratio 1.7 Result diagrams: 06/08/22 14:13 06/08/22 14:13 Orders (Tests/Meds): ED MEDICATIONS Discontinued Medications Generic Name Dose Route Start Last Admin Trade Name Michaelq PRN Reason Stop Dose Admin Acetaminophen 1,000 mg 06/08/22 13:13 06/08/22 13:18 Acetaminophen 500mg Tab PO 06/08/22 13:14 Not Given ONCE ONE Ibuprofen 600 mg 06/08/22 13:20 06/08/22 13:21 Ibuprofen 600 Mg Tablet PO 06/08/22 13:21 600 mg ONCE ONE Administration Medical Decision Narrative: This is a 51-year-old male with history of syncopal episodes presenting with syncopal episode. On arrival, patient hemodynamically stable, alert, oriented, moving all extremities spontaneously, pupils equal and reactive to light, GCS 15. Pharyngeal includes vasovagal syncope, orthostatic syncope, symptomatic anemia, electrolyte abnormality, trauma, arrhythmia, among others. Work-up significant for nonactionable CBC or CMP. EKG normal sinus rhythm without ST or T wave changes concerning acute ischemia. Intervals within normal limits. On reevaluation, patient remains at baseline without signs or symptoms of clinical decompensation, or neurologic abnormalities. Differential includes likely orthostatic versus vasovagal syncope. Patient states that he has been more stressed recently due to social situations and has been working hard at work, drinking primarily G
[2022-06-08 14:00] VITALS: PULSE 79; O2SAT 97
--- NOTE | 2022-06-08 14:05 | PC.NURSE ---
notified Gigi in lab to come straight stick patient
--- NOTE | 2022-06-08 14:16 | PC.NURSE ---
Lab at to draw labs.
[2022-06-08 14:22] LABS: Basophils # 0.2 K/mm3 (0-0.2); Basophils % 2.5 % (0.1-2.0); Eosinophils # 0.1 K/mm3 (0.0-0.4); Eosinophils % 1.9 % (0.1-12.0); Hematocrit 45.3 % (42.0-52.0); Hemoglobin 14.5 g/dL (14.1-18.0); Lymphocytes # 0.5 K/mm3 (0.7-4.5); Lymphocytes % 8.6 % (10-50); Mean Corpuscular HGB Conc 31.9 g/dL (31.8-35.4); Mean Corpuscular Hemoglobin 28.2 pg (27.0-31.2); Mean Corpuscular Volume 88.4 fl (80-94); Monocytes # 0.5 K/mm3 (0.1-1.0); Monocytes % 7.8 % (1.7-9.3); Neutrophils # 5.1 K/mm3 (1.8-7.8); Neutrophils % 79.2 % (37.0-80.0); Platelet Count 220 K/mm3 (142-424); Red Blood Count 5.12 M/mm3 (4.60-6.20); White Blood Count 6.4 K/mm3 (4.8-10.8)
[2022-06-08 14:24] LABS: Sodium 138 mmol/L (136-145)
[2022-06-08 14:27] LABS: Alanine Aminotransferase 57 U/L (12-78); Albumin/Globulin Ratio 1.7 (1.1-1.8); Alkaline Phosphatase 69 U/L (38-126); Anion Gap 11.8 mEq/L (5-15); Aspartate Amino Transferase 48 U/L (17-59); Blood Urea Nitrogen 10 mg/dl (9-20); Calcium 9.2 mg/dl (8.4-10.2); Carbon Dioxide 28 mmol/L (22.0-30.0); Chloride 103 mmol/L (98-107); Creatinine Clearance Estimated 50 mL/min (50-200); Estimated Glomerular Filt Rate 50 ml/min (>60); GFR (African American) 60 ML/MIN (>60); Globulin 2.3 g/dL (1.3-3.2); Glucose 97 mg/dl (74-100); Potassium 4.8 mmoL/L (3.5-5.1); Total Protein,Serum 6.3 g/dl (6.3-8.2)
[2022-06-08 14:30] VITALS: PULSE 82; O2SAT 97
[2022-06-08 14:30] LABS: Bilirubin,Total < 0.1 mg/dl (0.2-1.3)
[2022-06-08 15:03] VITALS: PULSE 67; O2SAT 98
[2022-06-08 15:32] VITALS: BP 120/77; PULSE 79; RESP 19; TEMP 37.2; O2SAT 97
== END 2022-06-08 15:35 | disposition home or self-care (01) ==
PROVIDERS: Emergency Provider Emergency Medicine
DX: R42 Dizziness and giddiness (principal)
CPT/HCPCS: 36415; 80053; 85025; 93005; 99283

== ENCOUNTER → 2022-06-26 06:38 | Outpatient (CLI) | payer OTHER, SELFPAY ==
--- NOTE | 2022-06-26 | CA_ITS ---
APPROVED REPORT Exam: Exercise Treadmill Technologist: Brooklyn Hanley, Ht: 5 ft 6 in Wt: 128 lbs BSA: 1.65 m2 HR: 75 bpm BP: 135/69 mmHg Indications: Syncope Medical History Medications: Omeprazole,,,,, Stress Test Details Test: Rony HR Resting HR: 81 bpm Max Heart Rate (APMHR): 171 bpm Max HR Achieved: 169 bpm Target HR (85% APMHR): 145 bpm % of APMHR: 99 Recovery HR: 101 bpm BP Resting BP: 127/73 mmHg Max BP: 161/82 mmHg Recovery BP: 125.0/81.0 mmHg ECG Resting ECG: NSR, LVH, ST-T abns inferiorly Clinical Exercise duration: 12:33 min Highest Stage Achieved: 5 Exercise capacity: 12.8 METs Stress ECG Conclusion Exercised 12:33 into stage 5 of Rony Protocol Max HR: 169 % of PM: 99% METs: 12.8 Test stopped due to: SOA, leg fatigue Symptoms: SOA, leg fatigue. No CP. Arrhythmias/Ectopy: None. ST-T Changes: 2-2.5mm of downsloping ST depression inferiorly. Apprx 2mm of horizontal ST depression laterally. Conclusion: Nondiagnostic EKG for ischemia due to baseline abnormal EKG. Test Summary REST . . . . . . . Sitting REST . . . . . . . Standing REST 08:43 0.0 0.0 81 . 127/ 73 . . Stage 1 01:00 10.0 1.7 103 . . . . Stage 1 02:00 10.0 1.7 100 . . . . Stage 1 03:00 10.0 1.7 104 . 124/ 70 . . Stage 2 01:00 12.0 2.5 105 . . . . Stage 2 02:00 12.0 2.5 113 . . . . Stage 2 03:00 12.0 2.5 117 . 132/ 68 . . Stage 3 01:00 14.0 3.4 124 . . . . Stage 3 02:00 14.0 3.4 131 . . . . Stage 3 03:00 14.0 3.4 139 . 140/ 70 . . Stage 4 01:00 16.0 4.2 150 . . . . Stage 4 02:00 16.0 4.2 156 . . . . Stage 4 03:00 16.0 4.2 161 . . . . Stage 5 00:33 18.0 5.0 168 . . . Stop exercise at 12:33 RECOVERY 01:00 0.0 0.0 152 . . . . RECOVERY 02:00 0.0 0.0 124 . 161/ 82 . . RECOVERY 03:00 0.0 0.0 113 . 136/ 81 . . RECOVERY 04:00 0.0 0.0 108 . 136/ 81 . . RECOVERY 05:00 0.0 0.0 102 . 119/ 81 . . RECOVERY 06:00 0.0 0.0 101 . 125/ 81 . . RECOVERY 06:19 0.0 0.0 102 . 125/ 81 . . Electronically signed by : Chad Holcomb MD 06/27/2022 09:40:33
--- NOTE | 2022-06-26 06:39 | CA_ITS ---
APPROVED REPORT EXAM: Comprehensive 2D, Doppler, and color-flow Echocardiogram Zipper Machine Operator: Lisa Thompson, WINIFRED, RVS Ht: 5 ft 7 in Wt: 128lbs BSA: 1.67 BP: 140/90 mmHg Indications: Murmur, syncope, Gerd, Family Hx-HD 2D Dimensions Aortic Root 3.21 cm LA Volume 43.60 mL Left Atrium 3.33 cm LA Volume Index 26.10 mL/m2 (M/F) 16-34 LVOT 1.88 cm (M/F) 1.5-2.5 M-Mode Dimensions RVDd 2.33 cm (0.9-2.6) LA Diam 3.12 cm (1.9-4.0) LVDd 5.12 cm (3.5-5.7) Ao Diam 3.26 cm (2.0-3.7) LVDs 3.58 cm (3.5-5.7) IVSd 0.86 cm (0.6-1.1) PWd 0.64 cm (0.6-1.1) EF (Teich) 57.00% EPSs 0.72 cm FS 30.10% EDV (Teich) 124.90 mL TAPSE 1.49 (<1.7) ESV (Teich) 53.70 mL LV Diastology E Decel Time 227.00 (160-240 msec) E/A Ratio 1.42 MED E' 7.20 (< 7 cm/sec) MED A' 8.90 cm/s E'/MED E' Ratio 9.18 (>14) LAT E' 13.40 (<10 cm/sec) LAT A' 10.50 cm/s E/LAT E' Ratio 4.93 (>14) Aortic Valve LVOT Max 100.00 (70-110 cm/s) LVOT VTI 19.12 cm AoV Peak Raghu. 128.00 (50-130 cm/s) AO Peak GR. 6.50 mmHg AO Mean GR. 3.40 (<5 mmHg) AO VTI 27.68 (18-25 cm) YEFRI (VTI) 1.92 (2.5-4.5 cm2) Mitral Valve MV A Velocity 47.00 (40-130 cm/s) E/A Ratio 1.42 MV Decel. Time 227.00 (160-240 ms) MV PHT 67.00 ms Pulmonary Valve PV Peak Velocity 82.00 (50-150 cm/s) Tricuspid Valve TR P. Velocity 184.00 cm/s Left Ventricle Left atrium normal size, left ventricle is normal size, there is no concentric left ventricular hypertrophy, estimated ejection fraction 45% with no regional wall motion abnormality, diastolic parameters are within normal range. Right Ventricle Right atrium and right ventricle are normal size and contractility. Aortic Valve Aortic valve is minimally thickened and fibrosed there is no aortic stenosis or aortic insufficiency. Mitral Valve Mitral valve grossly normal, there is trace mitral regurgitation. Tricuspid Valve Tricuspid valve grossly normal, there is trace tricuspid regurgitation, tricuspid regurgitation jet velocity is inadequate for calculation of the right ventricular systolic pressure. Pulmonic Valve Pulmonic valve is poorly visualized. Great Vessels Aortic root is normal size. Inferior vena cava is normal 7 normal spectral collapse. Pericardium No significant pericardial effusion noted. Conclusion 1. Normal left ventricular size, preserved left ventricular systolic function, estimated ejection fraction 55% with no regional wall motion abnormality, diastolic parameters are within normal range. 2. Trace mitral and tricuspid regurgitation. 3. No significant pericardial effusion noted 4. Inferior vena cava is normal size with normal inspiratory collapse. Electronically signed by : Chad Holcomb MD 06/27/2022 11:59:54
--- NOTE | 2022-06-26 06:39 | NM_ITS ---
APPROVED REPORT Exam: Nuclear Stress Test Indication: short of breath..syncope Patient Location: Outpatient Stress Tech: Brooklyn Douglas PA Tech:Indu Mckeon ARRSourav RT(R)(N) Ht: 5 ft 6 in Wt: 128 lbs HR: 81 bpm BP: 127/73 mmHg BSA: 1.65 m2 TID: 1.33 BMI: 20.6 History: short of breath..syncope Procedure: Patient exercised on Rony protocol 12.33 minutes and sec, resting heart rate 81 bpm, resting blood pressure 127/73 mmHg, with exercise maximum heart rate achived was 169 bpm which is Greater th85 % of the maximum predicted heart rate and blood pressure was 161/82 mmHg. Patient denied any complaint of chest pain. Patient has Good exercise capacity, achieved 12.8 METs of workload on treadmill, the blood pressure response to exercise was Adequate. Electrocardiogram Resting electrocardiogram shows sinus rhythm with ST segment depression in the inferior leads, with exercise there is additional millimeter ST segment depression noted from the baseline EKG. The EKG portion of the exercise Myoview is nondiagnostic due to baseline abnormal EKG. Cardiac Stress and Resting SPECT Images: Cardiac Stress and Resting SPECT images were obtained using technetium 99m Myoview 29.7 mCi stress and 10.32 mCi at rest. Gated SPECT analysis of segmental wall motion and calculation of the ejection fraction also done. Prone images were also obtained. Cardiac stress and rest SPECT images show reversible ischemia involving the anteroseptal wall, computer derived ejection fraction is 42% with left ventricle is globally hypokinetic, right ventricle is normal size and contractility. Conclusion: 1. The EKG portion of the exercise Myoview is nondiagnostic due to baseline abnormal EKG, patient has good exercise capacity achieved 12.8 METs of workload on treadmill, the blood pressure response to exercise was adequate. 2. Scintigraphic evidence of mild reversible ischemia involving the anteroseptal wall, computer derived ejection fraction 42% with left ventricle being globally hypokinetic, right ventricle is normal size and contractility. 3. Abnormal exercise Myoview study. Electronically signed by : Chad Holcomb MD 06/27/2022 09:43:41
== END ==
LOC: RAD 06:39
PROVIDERS: PCP Emergency Medicine; Visit Provider Emergency Medicine
DX: R55 Syncope and collapse (principal); R01.1 Cardiac murmur, unspecified
CPT/HCPCS: 78452; 93017; 93306; A9502

== ENCOUNTER → 2022-06-30 08:13 | Outpatient (CLI) | payer OTHER, SELFPAY ==
--- NOTE | 2022-06-30 08:13 | MR_ITS ---
FINAL REPORT CLINICAL HISTORY: SYNCOPAL EPISODE 3-4 WEEKS AGO 12ML PROHANCE INJECTED FINDINGS: Multiplanar MR imaging of the brain was performed without and with contrast. A single, less than 1 cm focus of increased T2 signal is seen in the right cerebral white matter that have a nonspecific appearance but likely represent mild chronic ischemic/gliotic change. There is no evidence of intracranial hemorrhage or mass. No abnormal ventricular dilatation is identified. There is no evidence of shift of the midline structures. No abnormal extra-axial fluid collection is seen. No area of abnormal restricted diffusion is identified. The posterior fossa and brainstem have an unremarkable appearance. No abnormal contrast enhancement is seen. Normal major vessel vascular flow voids are seen. IMPRESSION: Focus of increased T2 signal in the right cerebral white matter which is nonspecific but likely represents chronic microvascular ischemic change. No acute intracranial abnormality. Reviewed, Interpreted and Dictated by Ron Mares III, MD Transcribed by Jessica Fang Authenticated and [facility]
--- NOTE | 2022-06-30 08:59 | CT_ITS ---
FINAL REPORT TECHNIQUE: Thin section axial CT with IV contrast supplemented with multiplanar reconstruction under CT angiogram protocol. 3-D reconstructions were performed. This study was performed with techniques to keep radiation doses as low as reasonably achievable (ALARA). Individualized dose reduction techniques using automated exposure control or adjustment of mA and/or kV according to the patient''s size were employed. CLINICAL HISTORY: syncopy FINDINGS: The distal vertebral, basilar and distal internal carotid arteries have an unremarkable appearance. No aneurysm is seen. Major intracranial vessels are patent without significant stenosis. Reviewed, Interpreted and Dictated by Ron Mares III, MD Transcribed by Jessica Fang Authenticated and [facility]
--- NOTE | 2022-06-30 08:59 | CT_ITS ---
FINAL REPORT CLINICAL HISTORY: syncopy FINDINGS: CTA NECK Thin section axial CT with contrast with multiplanar reconstruction NASCET criteria and technique was utilized during interpretation. Aortic arch: Arch shows no significant narrowing. Great vessel origins are widely patent . Right carotid: No significant stenosis is seen of the cervical common or internal carotid artery . Left carotid: No significant stenosis is seen of the cervical common or internal carotid artery . Vertebrals: Left vertebral artery is dominant. No significant stenosis is present . IMPRESSION: No hemodynamically significant stenosis. Reviewed, Interpreted and Dictated by Ron Mares III, MD Transcribed by Jessica Fang Authenticated and [facility]
== END ==
LOC: RAD 08:13
PROVIDERS: PCP Emergency Medicine; Visit Provider Emergency Medicine
DX: R55 Syncope and collapse (principal)
CPT/HCPCS: 70496; 70498; 70553; A9576; Q9967

== ENCOUNTER 2022-07-02 09:19 | Day surgery (SDC) | payer OTHER, SELFPAY ==
[2022-07-02] VITALS (7 sets, daily range): BP systolic 93–142; BP diastolic 54–87; PULSE 54–83; RESP 18; O2SAT 91–97
--- NOTE | 2022-07-02 | IR_ITS ---
APPROVED REPORT Patient Location: Outpatient [facility]: CURRY Canchola RT (R) PROCEDURES Left heart catheterization Left ventriculogram Selective coronary angiogram INDICATION Abnormal stress test Informed consent was obtained prior to the procedure. COMPLICATIONS NONE Estimated Blood Loss: LESS THAN 10 ML TECHNIQUE One percent lidocaine used to anesthetize the right anterior aspect of the wrist. The right radial artery was accessed via the Seldinger technique. A 6 Divehi sheath was placed in the right radial artery. 2.5 mg of verapamil, 800 mcg of nitroglycerin, 1mg Lidocaine and 5000 U Heparin were given through the arterial sheath. The papa catheter was also used to perform left heart catheterization, left ventriculogram and selective coronary angiogram. At the end of the procedure the sheath was removed good hemostasis was achieved using Traclet band, patient was transferred to the postop holding area in stable condition. ANGIOGRAPHIC RESULTS The left main artery Normal The left anterior descending artery Normal The circumflex artery Codominant The right coronary artery Codominant normal The ROLDAN ventriculogram reveals Normal 65% The left ventricular end-diastolic pressure 10 mmHg IMPRESSION Normal coronary arteries Normal ejection fraction Normal left ventricular end-diastolic pressure PLAN 1. Evaluation of noncardiac symptoms Electronically signed by : Ariel Villa MD 07/02/2022 13:48:28
[2022-07-02 09:51] LABS: Influenza A, PCR Not Detected (NotDetected); Influenza B, PCR Not Detected (NotDetected)
[2022-07-02 09:56] LABS: Basophils # 0.1 K/mm3 (0-0.2); Basophils % 1.3 % (0.1-2.0); Eosinophils # 0.1 K/mm3 (0.0-0.4); Eosinophils % 2.3 % (0.1-12.0); Hematocrit 46.5 % (42.0-52.0); Hemoglobin 15.2 g/dL (14.1-18.0); Lymphocytes # 1.2 K/mm3 (0.7-4.5); Lymphocytes % 20.8 % (10-50); Mean Corpuscular HGB Conc 32.7 g/dL (31.8-35.4); Mean Corpuscular Hemoglobin 28.9 pg (27.0-31.2); Mean Corpuscular Volume 88.4 fl (80-94); Mean Platelet Volume 8.7 fl (7.4-10.4); Monocytes # 0.4 K/mm3 (0.1-1.0); Monocytes % 6.5 % (1.7-9.3); Neutrophils # 4.1 K/mm3 (1.8-7.8); Neutrophils % 69.1 % (37.0-80.0); Platelet Count 307 K/mm3 (142-424); Red Blood Count 5.26 M/mm3 (4.60-6.20); Red Cell Distribution Width 14.5 % (11.5-17.5); White Blood Count 5.9 K/mm3 (4.8-10.8)
[2022-07-02 10:08] LABS: Chloride 106 mmol/L (98-107); Sodium 141 mmol/L (136-145)
[2022-07-02 10:11] LABS: Blood Urea Nitrogen 12 mg/dl (9-20); Carbon Dioxide 29 mmol/L (22.0-30.0); Creatinine Clearance Estimated 67 mL/min (50-200); Estimated Glomerular Filt Rate 71 ml/min (>60); GFR (African American) 86 ML/MIN (>60)
[2022-07-02 10:12] LABS: Calcium 8.7 mg/dl (8.4-10.2); Glucose 105 mg/dl (74-100)
[2022-07-02 10:19] LABS: Coronavirus 19, PCR Detected (NotDetected)
== END 2022-07-02 15:24 | disposition home or self-care (01) ==
LOC: CATHLAB 09:20
PROVIDERS: PCP Emergency Medicine; Visit Provider Internal Medicine
DX: R55 Syncope and collapse (principal); R07.9 Chest pain, unspecified; K21.9 Gastro-esophageal reflux disease without esophagitis; R42 Dizziness and giddiness; R94.39 Abnormal result of other cardiovascular function study
CPT/HCPCS: 80048; 85025; 93458; 99152; C1725; C1769; C9803; J1644; J2720; Q9967; U0003; U0005

== ENCOUNTER 2023-10-05 21:18 | Observation (INO) | payer OTHER, SELFPAY ==
[2023-10-05 21:19] VITALS: BP 117/74; PULSE 84; RESP 16; TEMP 36.9; O2SAT 98; BMI 20.9
[2023-10-05 21:51] LABS: Basophils % 0.1 % (0.1-2.0); Eosinophils # 0.3 K/mm3 (0.0-0.4); Eosinophils % 1.2 % (0.1-12.0); Hemoglobin 16.1 g/dL (14.1-18.0); Lymphocytes # 0.9 K/mm3 (0.7-4.5); Lymphocytes % 3.9 % (10-50); Mean Corpuscular HGB Conc 35.1 g/dL (31.8-35.4); Mean Corpuscular Hemoglobin 29.7 pg (27.0-31.2); Mean Corpuscular Volume 84.5 fl (80-94); Mean Platelet Volume 8.1 fl (7.4-10.4); Monocytes # 0.3 K/mm3 (0.1-1.0); Monocytes % 1.1 % (1.7-9.3); Neutrophils # 21.6 K/mm3 (1.8-7.8); Neutrophils % 93.6 % (37.0-80.0); Platelet Count 282 K/mm3 (142-424); Red Blood Count 5.44 M/mm3 (4.60-6.20); Red Cell Distribution Width 13.6 % (11.5-17.5); White Blood Count 23.1 K/mm3 (4.8-10.8)
[2023-10-05 21:55] LABS: MANUAL DIFFERENTIAL MANUAL DIFFERENTIAL (MANUAL DIFF)
--- NOTE | 2023-10-05 21:58 | CT_ITS ---
PROCEDURE INFORMATION: Exam: CT Abdomen And Pelvis With Contrast Exam date and time: 10/05/2023 10:21 PM Age: 53 years old Clinical indication: Abdominal pain; Additional info: Abd pain and vomiting, leukocytosis, no po intake TECHNIQUE: Imaging protocol: Computed tomography of the abdomen and pelvis with contrast. Total images: 272 Radiation optimization: All CT scans at this facility use at least one of these dose optimization techniques: automated exposure control; mA and/or kV adjustment per patient size (includes targeted exams where dose is matched to clinical indication); or iterative reconstruction. Contrast material: ISOVUE; Contrast volume: 273 ml; Contrast route: IV; REPORTING DATA: Count of CT and Cardiac NM exams in prior 12 months: This patient has received 0 known CTs and 0 known cardiac nuclear medicine studies in the 12 months prior to the current study. COMPARISON: CT ABDOMEN PELVIS W CON 12/23/2020 11:50 PM FINDINGS: Lungs: Chronic reticulonodular interstitial pattern at both lung bases, similar to December 23, 2020. No airspace consolidation. Heart: Normal heart size. Diaphragm: Small hiatal hernia. Liver: Normal. No mass. Gallbladder and bile ducts: Status post cholecystectomy. Mild biliary ectasia compatible with post cholecystectomy status. Pancreas: Normal. No ductal dilation. Spleen: Normal. No splenomegaly. Adrenal glands: Normal. No mass. Kidneys and ureters: 3 mm nonobstructing left intrarenal calculus. Both kidneys are otherwise unremarkable. No hydronephrosis or ureteral stones. Stomach and bowel: Mostly collapsed stomach. Unremarkable duodenum. No ileus or bowel obstruction. Small bowel appears within normal limits. Postsurgical changes distal loop of ileum. The colon is mostly under distended. There are few scattered colonic diverticulum. No acute diverticulitis. Unremarkable rectum. Appendix: Status post appendectomy. Intraperitoneal space: Single gas locule within the right lower quadrant mesentery, axial image 65 series 3 of uncertain etiology or clinical significance. Otherwise, no free air. No ascites. Vasculature: Abdominal aorta is normal in caliber. Major abdominal vessels enhance appropriately. Mildly dilated main portal vein. No portal vein thrombus. Lymph nodes: Unremarkable. No enlarged lymph nodes. Urinary bladder: Mild circumferential bladder wall thickening. No bladder stones. Reproductive: Nonenlarged prostate Bones/joints: No acute osseous abnormality. Mild degenerative changes thoracolumbar spine. Partial fusion of vertebral bodies across the T11-T12 disc space. No concerning bone lesions. Soft tissues: Unremarkable. IMPRESSION: 1. Single punctate extraluminal gas locule in the right lower quadrant mesentery. This is of undetermined etiology. 2. 3 mm nonobstructing left intrarenal calculus. 3. Chronic reticulonodular interstitial pattern both lung bases, unchanged from December 23, 2020. 4. Small hiatal hernia.
[2023-10-05 22:01] LABS: Lymphocytes % 7 % (10-50); Monocytes % 1 % (2-9); Neutrophils % 92 % (42-76); Platelet Estimate Normal; RBC Morphology Normal; Total Cells Counted 100
[2023-10-05 22:02] LABS: Alanine Aminotransferase 356 U/L (12-78); Albumin Level 4.9 g/dl (3.5-5.0); Albumin/Globulin Ratio 1.8 (1.1-1.8); Alkaline Phosphatase 130 U/L (38-126); Anion Gap 14.1 mEq/L (5-15); Aspartate Amino Transferase 627 U/L (17-59); Bilirubin,Total 3.1 mg/dl (0.2-1.3); Blood Urea Nitrogen 17 mg/dl (9-20); Calcium 9.5 mg/dl (8.4-10.2); Carbon Dioxide 24 mmol/L (22.0-30.0); Chloride 103 mmol/L (98-107); Creatinine Clearance Estimated 56 mL/min (50-200); Estimated Glomerular Filt Rate 58 ml/min (>60); GFR (African American) 70 ML/MIN (>60); Globulin 2.8 g/dL (1.3-3.2); Glucose 123 mg/dl (74-100); Lipase 159 U/L (23-300); Potassium 4.1 mmoL/L (3.5-5.1); Sodium 137 mmol/L (136-145); Total Protein,Serum 7.7 g/dl (6.3-8.2)
[2023-10-05 22:24] LABS: Lactic Acid 2.1 mmol/L (0.7-2.1)
--- NOTE | 2023-10-05 22:44 | HMH.EDGENADL ---
Discharge Plan Disposition Patient Disposition: Admitted Chief Complaint: Abdominal Pain Clinical Impressions Clinical Impression: Elevated liver enzymes, Pneumoperitoneum of unknown etiology, Elevated bilirubin Discharge ED Provider: Braden Ramirez General Adult HPI <Gary Geronimo MD - Last Filed: 10/05/23 23:22> General Chief complaint: Abdominal Pain Stated complaint: abd pain, back pain Time Seen by Provider: 10/05/23 21:42 Mode of Arrival: Wheelchair Source of Information: Patient Limitations: No Limitations Description of Symptoms (Recalled from ER Triage Doc. by RN): pt reports abd pain and vomiting today, reports it stopped long enough to eat dinner than he started to hurt again and vomited. History of Present Illness HPI narrative: 53-year-old male history of hypertension hyper lipidemia, previous small bowel obstruction, cholecystectomy presenting with abdominal pain. Patient states that he was driving his car today when he had acute onset abdominal pain. Went home, shortly thereafter began vomiting and felt much better. Denies fevers or chills, but abdominal pain is epigastric/right upper quadrant, does not radiate. Vomiting is nonbloody, nonbilious. Patient not having diarrhea. Related Data Home Medications Medication Instructions Recorded Confirmed No Known Home Medications 10/06/23 10/06/23 Allergies Allergy/AdvReac Type Severity Reaction Status Date / Time No Known Allergies Allergy Verified 10/03/22 15:05 PFS <Gary Geronimo MD - Last Filed: 10/05/23 23:22> [facility] Disclaimer: The information contained in this section may have been updated after the patient was seen, as this information can be updated by other users. Medical History Gastroesophageal reflux disease Social History Smoking Status: Never smoker alcohol intake: former substance use type: denies use current occupational status: employed Travel in the last 8 weeks: None housing: house <Gray Geronimo MD - Last Filed: 10/05/23 23:22> ROS Obtained: Yes All systems reviewed & no additional complaints except as documented Physical Exam <Gary Geronimo MD - Last Filed: 10/05/23 23:22> General General appearance: alert and in no apparent distress Head Head exam: atraumatic and normocephalic Eye Eye exam: Present normal appearance, PERRL and EOMI ENT ENT exam: Present mucous membranes moist Neck Neck exam: Present normal inspection, full ROM and trachea midline Respiratory Respiratory exam: Absent respiratory distress, wheezes, stridor, accessory muscle use or prolonged expiratory phase Cardiovascular Cardiovascular exam: Present normal rhythm Abdominal Exam Abdominal exam: Present soft; Absent distention, tenderness, guarding, rebound, rigidity or normal bowel sounds Extremities Exam Extremities exam: Absent edema Neurological Exam Neurological exam: Present alert, oriented X3, CN II-XII intact and normal gait; Absent motor sensory deficit Skin Skin exam: Present warm and dry; Absent diaphoresis or erythema Medical Decision Making <Gary Geronimo MD - Last Filed: 10/05/23 23:22> Medical Records Medical records reviewed: Yes I reviewed the patient's medical records. Sg Inquiry Pt receiving controlled substance: No Sg was queried for this patient: No Vital Signs: 10/05/23 21:19 Temperature 98.5 F Temperature Source Oral Pulse Rate [Right] 84 Respiratory Rate 16 Blood Pressure [Right Arm] 117/74 Blood Pressure Mean [Right Arm] 88 Blood Pressure Source [Right Arm] Automatic Cuff Blood Pressure Position [Right Arm] Sitting 02 Sat by Pulse Oximetry 98 Oxygen Delivery Method Room Air Lab Data Lab Results 10/05/23 21:41: WBC 23.1 H*, RBC 5.44, Hgb 16.1, Hct 46.0, MCV 84.5, MCH 29.7, MCHC 35.1, RDW 13.6, Plt Count 282, MPV 8.1, Neut % (Auto) 93.6 H, Lymph % (Auto) 3.9 L, [place] % (Auto)
[2023-10-05 22:54] LABS: Acetaminophen < 10 ug/ml (10-30)
--- NOTE | 2023-10-06 00:19 | PC.NURSE ---
paged dr brush
--- NOTE | 2023-10-06 01:03 | PC.NURSE ---
provider made aware pt already received Unasyn, verbal order to cancel Zosyn
--- NOTE | 2023-10-06 01:19 | EXP.HP ---
History of Present Illness *Admission Date: 10/06/23 *Reason for visit:: abd pain *History of present illness: This is a 53-year-old male PMHx of hypertension hyperlipidemia, previous small bowel obstruction, cholecystectomy presenting with abdominal pain. Patient states that he was driving his car today when he had acute onset abdominal pain. Went home, shortly thereafter began vomiting and felt much better. Denies fevers or chills, but abdominal pain is epigastric/right upper quadrant, does not radiate. Vomiting is nonbloody, nonbilious. Patient not having diarrhea. Admitted for further work up and treatment [facility] Disclaimer: The information contained in this section may have been updated after the patient was seen, as this information can be updated by other users. Medical History (Updated 10/06/23 @ 07:03 by Gbae Novak MD) Gastroesophageal reflux disease Surgical History (Updated 10/06/23 @ 02:09 by Chasity Cooper RN) H/O exploratory laparotomy History of appendectomy Hx of cholecystectomy Hx of colectomy Social History Smoking Status: Never smoker alcohol intake: former substance use type: denies use current occupational status: employed Travel in the last 8 weeks: None housing: house Review of Systems Review of Systems Review of systems:: pertinent systems reviewed and negative unless documented below Meds Home Medications and Allergies Home Medications Medication Instructions Recorded Confirmed Type No Known Home Medications 10/06/23 10/06/23 History New Prescriptions to Start Prescriptions: Allergies Allergy/AdvReac Type Severity Reaction Status Date / Time No Known Allergies Allergy Verified 10/03/22 15:05 Exam Data for Last 24 hours Vital signs and Labs for Last 24 Hours: Temp Pulse Resp BP Pulse Ox O2 Del Method 98.5 F 84 16 117/74 98 Room Air 10/05/23 21:19 10/05/23 21:19 10/05/23 21:19 10/05/23 21:19 10/05/23 21:19 10/05/23 21:19 Laboratory Results - last 24 hr 10/05/23 21:41: WBC 23.1 H*, RBC 5.44, Hgb 16.1, Hct 46.0, MCV 84.5, MCH 29.7, MCHC 35.1, RDW 13.6, Plt Count 282, MPV 8.1, Neut % (Auto) 93.6 H, Lymph % (Auto) 3.9 L, [place] % (Auto) 1.1 L, Eos % (Auto) 1.2, Baso % (Auto) 0.1, Neut # (Auto) 21.6 H, Lymph # (Auto) 0.9, [place] # (Auto) 0.3, Eos # (Auto) 0.3, Baso # (Auto) 0.0, Total Counted 100, Neutrophils % (Manual) 92 H, Lymphocytes % (Manual) 7 L, Monocytes % (Manual) 1 L, Platelet Estimate Normal, RBC Morphology Normal, Sodium 137, Potassium 4.1, Chloride 103, Carbon Dioxide 24, Anion Gap 14.1, BUN 17, Creatinine 1.30 H, Estimated Creat Clear 56, Estimated GFR 58 L, Est GFR ( Amer) 70, Glucose 123 H, Lactate 2.1, Calcium 9.5, Total Bilirubin 3.1 H, AST 627 H*, ALT 356 H*, Alkaline Phosphatase 130 H, Total Protein 7.7, Albumin 4.9, Globulin 2.8, Albumin/Globulin Ratio 1.8, Lipase 159, Acetaminophen < 10 L I & O for Last 24 hours: Intake & Output 10/03/23 10/04/23 10/05/23 10/06/23 23:59 23:59 23:59 23:59 Weight 58.967 kg Constitutional Constitutional: moderate distress and thin *Routine HEENT Exam Head: Present normocephalic and atraumatic Eye: Present EOMI, PERRL and normal accommodation ENT: Present mucous membranes moist *Routine Neck Exam Neck: Present supple, full ROM and trachea midline *Routine Respiratory Exam Respiratory: Present normal respiratory effort, able to speak in complete sentences and symmetric chest movement *Routine Cardiovascular Exam Cardiovascular: Present RRR, Normal S1 and Normal S2 *Routine Abdominal Exam Abdominal: Present soft, normoactive bowel sounds, tenderness and guarding *Routine Rectal Exam Rectal:: deferred *Routine Genitalia Exam Genitalia:: deferred *Routine Extremities Exam Extremities: Present full ROM and pulses intact; Absent cyanosis, clubbing or edema *Routine Skin Exam Skin: Present intact, dry and warm
[2023-10-06 01:39] VITALS: BP 90/56; PULSE 75; RESP 16; TEMP 36.8; O2SAT 96
[2023-10-06 01:43] LABS: Reflex Lactic Add Lactic Reflex
[2023-10-06 01:54] LABS: Lactic Acid Follow Up (RFLX 1) 0.6 mmol/L (0.7-2.1)
[2023-10-06 02:00] VITALS: BP 90/56; PULSE 76; RESP 18; TEMP 36.7; O2SAT 95; BMI 19.3
--- NOTE | 2023-10-06 02:00 | PC.NURSE ---
PT ARRIVED TO FLOOR AT THIS TIME
--- NOTE | 2023-10-06 02:12 | US_ITS ---
FINAL REPORT CLINICAL HISTORY: elevated AST FINDINGS: Ultrasound images of the right upper quadrant were obtained. The liver parenchyma is normal in echogenicity. The gallbladder is surgically absent. The common duct is normal. Limited images of the right kidney are unremarkable. IMPRESSION: Cholecystectomy otherwise unremarkable exam. Reviewed, Interpreted and Dictated by Carlos Bowen MD Transcribed by Parth Corea Authenticated and [facility]
[2023-10-06 04:00] VITALS: BP 90/48; PULSE 50; RESP 16; TEMP 36.6; O2SAT 95; BMI 19.3
--- NOTE | 2023-10-06 07:01 | EXP.SURG.CON ---
History of Present Illness *Admission Date: 10/06/23 *Reason for visit:: Punctate intra-abdominal air pocket noted per CT scan *History of present illness: This is a 53-year-old gentleman admitted for acute hepatitis. The surgical service was consulted for above-stated radiographic finding. The patient states currently that he feels much better . He states that he is not experiencing abdominal pain at this time. Forwarded from admission H&P: This is a 53-year-old male PMHx of hypertension hyperlipidemia, previous small bowel obstruction, cholecystectomy presenting with abdominal pain. Patient states that he was driving his car today when he had acute onset abdominal pain. Went home, shortly thereafter began vomiting and felt much better. Denies fevers or chills, but abdominal pain is epigastric/right upper quadrant, does not radiate. Vomiting is nonbloody, nonbilious. Patient not having diarrhea. Admitted for further work up and treatment [facility] Disclaimer: The information contained in this section may have been updated after the patient was seen, as this information can be updated by other users. Medical History (Updated 10/06/23 @ 07:03 by Gabe Novak MD) Gastroesophageal reflux disease Surgical History (Updated 10/06/23 @ 02:09 by Chasity Cooper RN) H/O exploratory laparotomy History of appendectomy Hx of cholecystectomy Hx of colectomy Social History Smoking Status: Never smoker alcohol intake: former substance use type: denies use current occupational status: employed Travel in the last 8 weeks: None housing: house Meds Home Medications and Allergies Home Medications Medication Instructions Recorded Confirmed Type No Known Home Medications 10/06/23 10/06/23 History New Prescriptions to Start Prescriptions: Allergies Allergy/AdvReac Type Severity Reaction Status Date / Time No Known Allergies Allergy Verified 10/03/22 15:05 Exam (Inpt) Vital signs and Labs for Last 24 Hours: Temp Pulse Resp BP Pulse Ox O2 Del Method 97.9 F 50 L 16 90/48 L 95 Room Air 10/06/23 04:00 10/06/23 04:00 10/06/23 04:00 10/06/23 04:00 10/06/23 04:00 10/06/23 05:00 Laboratory Results - last 24 hr 10/05/23 21:41: WBC 23.1 H*, RBC 5.44, Hgb 16.1, Hct 46.0, MCV 84.5, MCH 29.7, MCHC 35.1, RDW 13.6, Plt Count 282, MPV 8.1, Neut % (Auto) 93.6 H, Lymph % (Auto) 3.9 L, [place] % (Auto) 1.1 L, Eos % (Auto) 1.2, Baso % (Auto) 0.1, Neut # (Auto) 21.6 H, Lymph # (Auto) 0.9, [place] # (Auto) 0.3, Eos # (Auto) 0.3, Baso # (Auto) 0.0, Total Counted 100, Neutrophils % (Manual) 92 H, Lymphocytes % (Manual) 7 L, Monocytes % (Manual) 1 L, Platelet Estimate Normal, RBC Morphology Normal, Sodium 137, Potassium 4.1, Chloride 103, Carbon Dioxide 24, Anion Gap 14.1, BUN 17, Creatinine 1.30 H, Estimated Creat Clear 56, Estimated GFR 58 L, Est GFR ( Amer) 70, Glucose 123 H, Lactate 2.1, Calcium 9.5, Total Bilirubin 3.1 H, AST 627 H*, ALT 356 H*, Alkaline Phosphatase 130 H, Total Protein 7.7, Albumin 4.9, Globulin 2.8, Albumin/Globulin Ratio 1.8, Lipase 159, Acetaminophen < 10 L 10/06/23 01:36: Lactate 0.6 L I & O for Labs for Last 24 Hours: Intake & Output 10/03/23 10/04/23 10/05/23 10/06/23 11:59 11:59 11:59 11:59 Weight 120 lb 11.2 oz Constitutional: no acute distress Respiratory: Absent respiratory distress Cardiac: Absent Tachycardia GI: Present soft Results Labs 10/05/23 21:41 10/05/23 21:41 Labs: Laboratory Results - last 24 hr 10/05/23 21:41: WBC 23.1 H*, RBC 5.44, Hgb 16.1, Hct 46.0, MCV 84.5, MCH 29.7, MCHC 35.1, RDW 13.6, Plt Count 282, MPV 8.1, Neut % (Auto) 93.6 H, Lymph % (Auto) 3.9 L, [place] % (Auto) 1.1 L, Eos % (Auto) 1.2, Baso % (Auto) 0.1, Neut # (Auto) 21.6 H, Lymph # (Auto) 0.9, [place] # (Auto) 0.3, Eos # (Auto) 0.3, Baso # (Auto) 0.0, Total Counted 100, Neutrophils % (Manual) 92 H, [place]
[2023-10-06 07:23] LABS: Basophils % 0.3 % (0.1-2.0); Eosinophils # 0.1 K/mm3 (0.0-0.4); Eosinophils % 0.6 % (0.1-12.0); Hematocrit 39.1 % (42.0-52.0); Lymphocytes # 0.7 K/mm3 (0.7-4.5); Lymphocytes % 5.8 % (10-50); Mean Corpuscular HGB Conc 34.9 g/dL (31.8-35.4); Mean Corpuscular Hemoglobin 29.9 pg (27.0-31.2); Mean Corpuscular Volume 85.7 fl (80-94); Mean Platelet Volume 7.9 fl (7.4-10.4); Monocytes # 0.5 K/mm3 (0.1-1.0); Monocytes % 3.8 % (1.7-9.3); Neutrophils % 89.4 % (37.0-80.0); Platelet Count 203 K/mm3 (142-424); Red Blood Count 4.56 M/mm3 (4.60-6.20); Red Cell Distribution Width 13.9 % (11.5-17.5); White Blood Count 12.3 K/mm3 (4.8-10.8)
[2023-10-06 07:26] LABS: MANUAL DIFFERENTIAL MANUAL DIFFERENTIAL (MANUAL DIFF)
[2023-10-06 07:34] LABS: Chloride 108 mmol/L (98-107); Sodium 141 mmol/L (136-145)
[2023-10-06 07:35] LABS: Potassium 3.9 mmoL/L (3.5-5.1)
[2023-10-06 07:37] LABS: Alanine Aminotransferase 426 U/L (12-78); Alkaline Phosphatase 110 U/L (38-126); Anion Gap 11.9 mEq/L (5-15); Aspartate Amino Transferase 425 U/L (17-59); Bilirubin,Total 3.7 mg/dl (0.2-1.3); Blood Urea Nitrogen 20 mg/dl (9-20); Calcium 8.2 mg/dl (8.4-10.2); Carbon Dioxide 25 mmol/L (22.0-30.0); Creatinine Clearance Estimated 42 mL/min (50-200); Estimated Glomerular Filt Rate 46 ml/min (>60); GFR (African American) 55 ML/MIN (>60); Glucose 94 mg/dl (74-100)
[2023-10-06 07:38] LABS: Albumin Level 3.8 g/dl (3.5-5.0); Albumin/Globulin Ratio 1.9 (1.1-1.8); Magnesium 2.2 mg/dl (1.6-2.3); Total Protein,Serum 5.8 g/dl (6.3-8.2)
[2023-10-06 08:00] VITALS: BP 112/70; PULSE 55; RESP 16; TEMP 36.7; O2SAT 100
[2023-10-06 08:35] LABS: Lymphocytes % 9 % (10-50); Monocytes % 1 % (2-9); Neutrophils % 90 % (42-76); Platelet Estimate Normal; RBC Morphology Normal; Total Cells Counted 100
[2023-10-06 09:05] LABS: Hemoglobin 13.6 g/dL (14.1-18.0)
[2023-10-06 11:50] LABS: Microscopic, Urine URINE MICROSCOPIC (MICROSCOPIC)
[2023-10-06 11:51] LABS: Appearance,Urine SL CLOUDY (Clear); Blood, Urine Negative (Negative); Color,Urine DARK YELLOW (Yellow); Glucose,Urine (UA) Negative (Negative); Ketones,Urine TRACE (Negative); Leukocyte Esterase,Urine Negative (Negative); Nitrate,Urine Negative (Negative); PH,Urine 5.5 (5.0-8.5); Protein,Urine TRACE (Negative); Specific Gravity, Urine 1.025 (1.005-1.030)
[2023-10-06 11:52] LABS: Bilirubin,Urine 2+ (Negative)
[2023-10-06 12:14] LABS: Amorphous Sediment,Urine 3+ /lpf; Bacteria,Urine 1+ /lpf; Squamous Epithelial Cell,Urine Occasional #/hpf (0-5)
[2023-10-06 16:00] VITALS: BP 117/82; PULSE 73; RESP 16; TEMP 36.3; O2SAT 99
[2023-10-06 18:12] LABS: NT Pro Brain Natriuretic Pep. 251 pg/mL (0-125)
[2023-10-06 20:00] VITALS: BP 104/54; PULSE 69; RESP 16; TEMP 36.6; O2SAT 100
[2023-10-07 04:00] VITALS: BP 96/45; PULSE 69; RESP 18; TEMP 36.6; O2SAT 98
[2023-10-07 07:50] VITALS: BP 107/62; PULSE 73; RESP 17; TEMP 36.9; O2SAT 99
[2023-10-07 07:50] LABS: HBsAg Screen Negative (Negative); HCV Ab Non Reactive (Non Reactive); Hep A Ab, IGM Negative (Negative); Hep B Core Ab, IgM Negative (Negative)
--- NOTE | 2023-10-07 08:39 | P.PN_ITS ---
Subjective Patient reports: no new complaints and feels better Exam Data for Last 24 hours Vital signs and Labs for Last 24 Hours: Temp Pulse Resp BP Pulse Ox O2 Del Method 98.4 F 73 17 107/62 L 99 Room Air 10/07/23 07:50 10/07/23 07:50 10/07/23 07:50 10/07/23 07:50 10/07/23 07:50 10/07/23 07:50 Laboratory Results - last 24 hr 10/06/23 00:50: Hepatitis A IgM Ab Negative, Hep Bs Antigen Negative, Hep B Core IgM Ab Negative, Hepatitis C Antibody Non reactive 10/06/23 06:37: Hgb 13.6 L D 10/06/23 11:43: Urine Color Dark yellow, Urine Appearance Sl cloudy, Urine pH 5.5, Ur Specific [place] 1.025, Urine Protein Trace, Urine Glucose (UA) Negative, Urine Ketones Trace, Urine Blood Negative, Urine Nitrate Negative, Urine Bilirubin 2+ A, Urine Urobilinogen 2.0, Ur Leukocyte Esterase Negative, Urine RBC None, Urine WBC None, Ur Squamous Epith Cells Occasional, Amorphous Sediment 3+, Urine Bacteria 1+ 10/06/23 17:39: NT-Pro-B Natriuret Pep 251 H I & O for Last 24 hours: Intake & Output 10/04/23 10/05/23 10/06/23 10/07/23 11:59 11:59 11:59 11:59 Intake Total 2049 Output Total 0 / 0 Balance 2049 Weight 120 lb 11.2 oz 125 lb 1.6 oz Constitutional Constitutional: no acute distress *Routine Respiratory Exam Respiratory: Absent respiratory distress *Routine Cardiovascular Exam Cardiovascular: Absent tachycardia *Routine Abdominal Exam Abdominal: Present soft; Absent tenderness Progress Note: A&P Assessment and plan (1) Abdominal pain: Status: Resolved Assessment and plan: He states that he currently has no abdominal pain. No need for urgent exploration. Secondary to his comorbid condition of acute hepatitis/acute kidney injury...if he develops recurrent abdominal pain warranting further consideration of exploration, he would be best served at a tertiary facility with both high risk surgical and gastroenterology capabilities. (2) Pneumoperitoneum of unknown etiology: Problem details: Single punctate extraluminal gas locule in right lower quadrant mesentery of undetermined etiology per CT scan. History of diverticulitis; however, no secondary evidence radiographically of diverticulitis noted. Status: Acute Assessment and plan: (see #1 above) (3) History of diverticulitis: Status: Acute Assessment and plan: (see #2 above)
[2023-10-07 10:31] LABS: Basophils % 0.5 % (0.1-2.0); Chloride 107 mmol/L (98-107); Eosinophils # 0.3 K/mm3 (0.0-0.4); Eosinophils % 5.1 % (0.1-12.0); Hematocrit 37.1 % (42.0-52.0); Hemoglobin 12.8 g/dL (14.1-18.0); Lymphocytes # 0.7 K/mm3 (0.7-4.5); Lymphocytes % 11.4 % (10-50); Mean Corpuscular HGB Conc 34.4 g/dL (31.8-35.4); Mean Corpuscular Hemoglobin 29.9 pg (27.0-31.2); Mean Corpuscular Volume 87.1 fl (80-94); Mean Platelet Volume 8.3 fl (7.4-10.4); Monocytes # 0.4 K/mm3 (0.1-1.0); Monocytes % 5.6 % (1.7-9.3); Neutrophils # 4.8 K/mm3 (1.8-7.8); Neutrophils % 77.3 % (37.0-80.0); Platelet Count 184 K/mm3 (142-424); Red Blood Count 4.26 M/mm3 (4.60-6.20); Red Cell Distribution Width 13.7 % (11.5-17.5); Sodium 138 mmol/L (136-145); White Blood Count 6.2 K/mm3 (4.8-10.8)
[2023-10-07 10:34] LABS: Alanine Aminotransferase 239 U/L (12-78); Albumin Level 3.4 g/dl (3.5-5.0); Albumin/Globulin Ratio 1.5 (1.1-1.8); Alkaline Phosphatase 104 U/L (38-126); Aspartate Amino Transferase 101 U/L (17-59); Bilirubin,Total 3.2 mg/dl (0.2-1.3); Blood Urea Nitrogen 13 mg/dl (9-20); Carbon Dioxide 25 mmol/L (22.0-30.0); Creatinine Clearance Estimated 50 mL/min (50-200); Estimated Glomerular Filt Rate 53 ml/min (>60); GFR (African American) 65 ML/MIN (>60); Globulin 2.3 g/dL (1.3-3.2); Glucose 109 mg/dl (74-100); Total Protein,Serum 5.7 g/dl (6.3-8.2)
--- NOTE | 2023-10-07 12:21 | EXP.DC.SUM ---
General Admission date:: 10/06/23 Discharge date: 10/07/23 HPI HPI HPI: This is a 53-year-old gentleman admitted for acute hepatitis. The surgical service was consulted for above-stated radiographic finding. The patient states currently that he feels much better . He states that he is not experiencing abdominal pain at this time. Forwarded from admission H&P: This is a 53-year-old male PMHx of hypertension hyperlipidemia, previous small bowel obstruction, cholecystectomy presenting with abdominal pain. Patient states that he was driving his car today when he had acute onset abdominal pain. Went home, shortly thereafter began vomiting and felt much better. Denies fevers or chills, but abdominal pain is epigastric/right upper quadrant, does not radiate. Vomiting is nonbloody, nonbilious. Patient not having diarrhea. Admitted for further work up and treatment Hospital Course Hospital Course Hospital Course: Patient was seen and evaluated at the bedside on the day of discharge. Patient is stable for discharge. Patient wishes to be discharged. All patient questions were answered and patient was given time to ask questions. Patient was discharged in stable condition. Patient understands that she can return to ER in case of any sudden changes in health. Total time spent on DC - 38 mins 53-year-old male PMHx of hypertension hyperlipidemia, previous small bowel obstruction, cholecystectomy presenting with abdominal pain. Patient states that he was driving his car today when he had acute onset abdominal pain. On arrival patient hemodinamically stable. initial work up included CTA of abdomen. there was not conclusive for acute process. However imaging showing air spot in the mesenteric, concerning for micropreforation. Labs showing elevated hepatic enzyme AST/ALT. hepatitis panel drwan. there is also moderate leukocytosis. Findings discussed with ER provider and surgeon stonecutter. agreed for admission. Plan as follow: -abdominal pain on right upper quadrant to r/o acute hepatitis: - resolved and LFTs imprving f/u with PCP in 1 week - Pneumoperitoneum - incidental finding, GS was consulted and no plan for any further testing - GERD; small hiatial hernia. stable. On protonix Exam Data for Last 24 hours Vital signs and Labs for Last 24 Hours: Temp Pulse Resp BP Pulse Ox O2 Del Method 98.4 F 73 17 107/62 L 99 Room Air 10/07/23 07:50 10/07/23 07:50 10/07/23 07:50 10/07/23 07:50 10/07/23 07:50 10/07/23 07:50 Laboratory Results - last 24 hr 10/06/23 00:50: Hepatitis A IgM Ab Negative, Hep Bs Antigen Negative, Hep B Core IgM Ab Negative, Hepatitis C Antibody Non reactive 10/06/23 17:39: NT-Pro-B Natriuret Pep 251 H 10/07/23 09:57: WBC 6.2 D, RBC 4.26 L, Hgb 12.8 L, Hct 37.1 L, MCV 87.1, MCH 29.9, MCHC 34.4, RDW 13.7, Plt Count 184, MPV 8.3, Neut % (Auto) 77.3, Lymph % (Auto) 11.4, [place] % (Auto) 5.6, Eos % (Auto) 5.1, Baso % (Auto) 0.5, Neut # (Auto) 4.8, Lymph # (Auto) 0.7, [place] # (Auto) 0.4, Eos # (Auto) 0.3, Baso # (Auto) 0.0, Sodium 138, Potassium 4.0, Chloride 107, Carbon Dioxide 25, Anion Gap 10.0, BUN 13 D, Creatinine 1.40 H, Estimated Creat Clear 50, Estimated GFR 53 L, Est GFR ( Amer) 65, Glucose 109 H, Calcium 8.0 L, Total Bilirubin 3.2 H, AST 101 H D, ALT 239 H D, Alkaline Phosphatase 104, Total Protein 5.7 L, Albumin 3.4 L D, Globulin 2.3, Albumin/Globulin Ratio 1.5 I & O for Last 24 hours: Intake & Output 10/04/23 10/05/23 10/06/23 10/07/23 23:59 23:59 23:59 23:59 Intake Total 2049 Output Total 0 / 0 Balance 2049 Weight 58.967 kg 54.749 kg 56.744 kg Constitutional Constitutional: no acute distress *Routine HEENT Exam Head: Present normocephalic Eye: Present EOMI and PERRL ENT: Present mucous membranes moist *Routine Neck Exam Neck: Present supple; Absent lymphadenopathy *Routine Respiratory Exam Respiratory: Present CTA bilaterally *Routine Cardiovascular E
--- NOTE | 2023-10-08 11:19 | CARE MANAGER ---
Contacted patient related to hospital discharge. Patient states that he is doing well. He has medication and is aware of follow up appointment. Denies questions or concerns. ALAYNA [place]
== END 2023-10-07 14:49 | disposition home or self-care (01) ==
LOC: ER 22:11 → 2ND 10-06 01:36
PROVIDERS: Emergency Medicine; Internal Medicine; Nurse Practitioner Family; Admitting Provider Internal Medicine Adolescent Medicine; Emergency Provider Emergency Medicine; PCP Internal Medicine; Visit Provider Internal Medicine Adolescent Medicine
DX: K66.8 Other specified disorders of peritoneum (principal); I10 Essential (primary) hypertension; E78.5 Hyperlipidemia, unspecified; K21.9 Gastro-esophageal reflux disease without esophagitis; Z90.49 Acquired absence of other specified parts of digestive tract
CPT/HCPCS: 36415; 74177; 76705; 80053; 80074; 80329; 81001; 83605; 83690; 83735; 83880; 85007; 85025; 87040; 99291; G0378; J2405; J2543; Q9967

== ENCOUNTER 2024-05-22 09:38 | Emergency (ER) | payer OTHER, SELFPAY ==
[2024-05-22] VITALS (22 sets, daily range): BP systolic 115–175; BP diastolic 63–101; PULSE 68–105; RESP 15–19; TEMP 36.7–36.8; O2SAT 93–100; BMI 20.9
--- NOTE | 2024-05-22 09:56 | HMH.EDGENADL ---
Discharge Plan Disposition Patient Disposition: Xfer Other Condition: Fair Chief Complaint: Nausea/Vomiting/Diarrhea Prescriptions Prescriptions: No Action amoxicillin-pot clavulanate 875-125 mg tablet 1 tab PO BID 5 Days Qty: 10 0RF Referrals Follow up/Referrals: Raúl Castro DO [Primary Care Provider] - See instructions Clinical Impressions Clinical Impression: SBO (small bowel obstruction), Pulmonary embolism, Abdominal pain Instructions Patient Instructions: DI for Diarrhea and Traveler's Diarrhea -- Adult, DI for Diarrhea and Traveler's Diarrhea -- Child, DI for Nausea -- Adult, DI for Nausea -- Child Print Language Print Language: [place] Discharge ED Provider: Richmond Rosas General Adult HPI General Chief complaint: Nausea/Vomiting/Diarrhea Stated complaint: vomiting, weakness Time Seen by Provider: 05/22/24 09:53 Mode of Arrival: Ambulatory Source of Information: Patient Limitations: No Limitations Description of Symptoms (Recalled from ER Triage Doc. by RN): pt presents to ED with c/o nausea, vomitting, abd pain with vomitting. pt reorts a hx of diverticulitis. pt reports symptoms ongoing for the past 2 week intermittent, last night symptoms become worse. History of Present Illness HPI narrative: 53-year-old male with past medical history significant for SBO, GERD, diverticulitis, presents today for evaluation concerning abdominal pain with associated N/V this morning. He states that his symptoms have been intermittent over the past couple of weeks. Denies have any chest pain, shortness of breath, fevers, chills, dysuria, hematuria or any other associated symptoms at this time. Related Data Previous Rx's ?Medication ?Instructions ?Recorded amoxicillin 875 mg-potassium 1 tab PO BID 5 days #10 tabs 10/07/23 clavulanate 125 mg tablet Allergies Allergy/AdvReac Type Severity Reaction Status Date / Time No Known Allergies Allergy Verified 10/03/22 15:05 [facility] Disclaimer: The information contained in this section may have been updated after the patient was seen, as this information can be updated by other users. Medical History (Updated 05/22/24 @ 13:50 by Richmond Rosas DO) Elevated bilirubin Pneumoperitoneum of unknown etiology Elevated liver enzymes Elevated blood pressure reading in office without diagnosis of hypertension Abnormal result of cardiovascular function study Dizziness Dyspnea Syncope Vasovagal syncope Gastroesophageal reflux disease History of diverticulitis SIRS (systemic inflammatory response syndrome) Small bowel obstruction Surgical History (Updated 10/06/23 @ 02:09 by Chasity Cooper RN) Hx of colectomy H/O exploratory laparotomy History of appendectomy Hx of cholecystectomy Social History Smoking Status: Current every day smoker alcohol intake: former substance use type: denies use current occupational status: employed Travel in the last 8 weeks: None housing: house ROS Obtained: Yes All systems reviewed & no additional complaints except as documented Physical Exam General General appearance: alert and in no apparent distress Head Head exam: atraumatic and normocephalic Eye Eye exam: Present normal appearance, PERRL and EOMI ENT ENT exam: Present normal oropharynx and mucous membranes moist Neck Neck exam: Present full ROM; Absent meningismus Respiratory Respiratory exam: Absent respiratory distress, wheezes, stridor or accessory muscle use Cardiovascular Cardiovascular exam: Present normal rhythm Abdominal Exam Abdominal exam: Present soft and tenderness; Absent distention, guarding, rebound or rigidity Abdominal tenderness: Present diffuse Neurological Exam Neurological exam: Present alert, oriented X3 and CN II-XII intact; Absent motor sensory deficit Psychiatric Psychiatric exam: Present normal affect and normal mood Skin Skin exam: Present warm and dry Medical Decision Making Medical Records Medical records reviewed: Yes I reviewed the patient's medical records. Sg Inquiry Pt receiving controlled substance: No Sg was queried for this patient: No Vital Signs: 05/22/24 09:40 05/22/24 10:00 05/22/24 10:30 Temperature 98.1 F Temperature Source Oral Pulse Rate 97 H 91 H Pulse Rate [Left Radial] 105 H Respiratory Rate 19 Blood Pressure 117/73 123/73 Blood Pressure [Right Arm] 128/85 Blood Pressure Mean [Right Arm] 99 02 Sat by Pulse Oximetry 96 97 96 Oxygen Delivery Method Room Air Room Air Room Air 05/22/24 11:00 05/22/24 11:30 05/22/24 12:30 Temperature Temperature Source Pulse Rate 79 81 75 Pulse Rate [Left Radial] Respiratory Rate Blood Pressure 139/79 123/75 123/77 Blood Pressure [Right Arm] Blood Pressure Mean [Right Arm] 02 Sat by Pulse Oximetry 100 96 97 Oxygen Delivery Method Room Air Room Air Room Air 05/22/24 13:30 Temperature Temperature Source Pulse Rate 74 Pulse Rate [Left Radial] Respiratory Rate Blood Pressure 130/90 Blood Pressure [Right Arm] Blood Pressure Mean [Right Arm] 02 Sat by Pulse Oximetry 98 Oxygen Delivery Method Lab Data Lab Results 05/22/24 09:45: WBC 17.4 H, RBC 5.55, Hgb 16.2, Hct 48.5, MCV 87.4, MCH 29.2, MCHC 33.4, RDW 14.9, Plt Count 307, MPV 9.0, Neut % (Auto) 91.5 H, Lymph % (Auto) 4.7 L, [place] % (Auto) 3.0, Eos % (Auto) 0.6, Baso % (Auto) 0.3, Neut # (Auto) 15.9 H, Lymph # (Auto) 0.8, [place] # (Auto) 0.5, Eos # (Auto) 0.1, Baso # (Auto) 0.1, Total Counted 100, Neutrophils % (Manual) 91 H, Band Neutrophils % 1.0, Lymphocytes % (Manual) 5 L, Monocytes % (Manual) 3, Platelet Estimate Normal, RBC Morphology Normal, PT 10.3, INR 0.91, APTT 24.5, Sodium 140, Potassium 4.3, Chloride 106, Carbon Dioxide 26, Anion Gap 12.3, BUN 13, Creatinine 1.30 H, Estimated Creat Clear 56, Estimated GFR 58 L, Est GFR ( Amer) 70, Glucose 128 H, Calcium 9.6, Total Bilirubin 0.8, AST 31, ALT 31, Alkaline Phosphatase 72, Total Protein 7.5 D, Albumin 4.6, Globulin 2.9, Albumin/Globulin Ratio 1.6, Lipase 39 05/22/24 12:25: Lactate 1.2 05/22/24 09:45 05/22/24 09:45 Orders (Tests/Meds): ED MEDICATIONS Generic Name Dose Route Start Last Admin Trade Name Freq PRN Reason Stop Dose Admin Heparin Sodium (Porcine) 5,000 unit 05/22/24 13:34 Heparin Sodium 5,000 Unit/Ml Vial IV 05/22/24 13:35 ONCE ONE Heparin Sodium/Dextrose 500 mls @ 24 mls/hr 05/22/24 13:45 Heparin 25,000 Units In D5w 500ml Premix IV 06/21/24 13:44 .[id number] JENNIFER 1,200 UNITS/HR Sodium Chloride 10 ml 05/22/24 11:18 05/22/24 11:19 Sodium Chloride 0.9% 10ml Syr (Rad Only) IV 06/21/24 11:17 10 ml NEEDED PRN Administration Maintain IV Site Sodium Chloride 10 ml 05/22/24 12:00 05/22/24 12:01 Sodium Chloride 0.9% 10ml Syr (Rad Only) IV 06/21/24 11:59 10 ml NEEDED PRN Administration Maintain IV Site Discontinued Medications Generic Name Dose Route Start Last Admin Trade Name Freq PRN Reason Stop Dose Admin Lactated Ringer's 1,000 mls @ 999 mls/hr 05/22/24 10:00 05/22/24 10:10 Lactated Ringer's 1000 Ml Bag IV 05/22/24 11:00 999 mls/hr .Q1H1M ONE Administration Iopamidol 75 ml 05/22/24 11:18 05/22/24 11:19 Iopamidol-370 (76%);100ml Bottle IV 05/22/24 11:19 75 ml ONCE ONE Administration Iopamidol 70 ml 05/22/24 12:00 05/22/24 12:01 Iopamidol-370 (76%);100ml Bottle IV 05/22/24 12:01 70 ml ONCE ONE Administration Morphine Sulfate 4 mg 05/22/24 10:00 05/22/24 10:10 Morphine 4mg/Ml Syringe IV 05/22/24 10:01 4 mg ONCE ONE Administration Ondansetron HCl 4 mg 05/22/24 10:00 05/22/24 10:10 Ondansetron 4mg/2ml Vial IV 05/22/24 10:01 4 mg ONCE ONE Administration Ondansetron HCl 4 mg 05/22/24 11:12 05/22/24 11:12 Ondansetron 4mg/2ml Vial IV 05/22/24 11:13 4 mg ONCE ONE Administration Sodium Chloride 50 ml 05/22/24 12:00 05/22/24 12:01 0.9 % Sodium Chloride 50 Ml Vial IV 05/22/24 12:01 50 ml ONCE ONE Administration ORDERS Category Date Time Status CT abdomen pelvis w con Stat Cat Scan 05/22/24 10:[address] angio chest PE protocol Stat Cat Scan 05/22/24 11:38 Completed CBC w/Auto Diff [Complete Blood Count Auto Diff] Stat Lab 05/22/24 09:45 Completed CMP [Comprehensive Metabolic Panel] Stat Lab 05/22/24 09:45 Completed Lactic Acid Stat Lab 05/22/24 12:25 Completed Lipase Stat Lab 05/22/24 09:45 Completed PT INR [Prothrombin Time INR] Stat Lab 05/22/24 09:45 Completed PTT [Activated Partial Thrombo Time] Stat Lab 05/22/24 09:45 Completed Medical Decision Narrative: 53-year-old male with past medical history significant for SBO, GERD, diverticulitis, cholecystectomy, appendectomy, colectomy, presents today for evaluation concerning abdominal pain with associated N/V this morning. He states that his symptoms have been intermittent over the past couple of weeks. Has also had nonbloody diarrhea. On assessment he was hemodynamically stable and in no acute distress. Afebrile. His chest was clear to auscultation bilaterally. Abdomen was soft and nondistended however was generally tender to palpation. Other physical exam findings unremarkable. Differential diagnosis includes not limited to diverticulitis, colitis, pancreatitis, gastroenteritis, gastritis, SBO, among others. Patient's labs today have been remarkable for a WBC of 17.4. PT/INR 10.3/0.91. APTT of 24.5. CMP with mild elevation in creatinine at 1.3. Lactate 1.2. CT abdomen pelvis revealed a moderate grade small bowel obstruction with distention and fluid levels. Transition zone likely in the right lower quadrant. Patient also has an acute pulmonary emboli within segmental arteries to the right lower lobe. Given this I did order a dedicated CT PE and it redemonstrated acute pulmonary emboli within segmental branches to the right lower lobe compatible with moderate embolism burden. No right heart strain per radiology. Did order for an EKG and it showed normal sinus rhythm with a rate of 71 bpm. No ischemic changes. MI interval 156. QRS of 86. QTc 408. On reassessment the patient remains hemodynamically stable and in no acute distress. He states that his pain is controlled at this time. I discussed ED workup and results as well as current plan. I did speak with general surgery here initially however given that patient will need higher level of care did speak with general surgery Dr. Vang at [facility] and discussed management and he has agreed to evaluate patient upon arrival. Also spoke with Dr. Crane with hospital medicine and discussed management in regards to patient's pulmonary embolism and bowel obstruction and he has accepted admission. At this time we will start patient on heparin to initiate anticoagulation. Patient remained stable at this time and is agreeable to plan. Critical Care Critical Care Time Critical Care Time: No
--- NOTE | 2024-05-22 10:02 | CT_ITS ---
PROCEDURE INFORMATION: Exam: CT Abdomen And Pelvis With Contrast Exam date and time: 05/22/2024 11:07 AM Age: 53 years old Clinical indication: Abdominal pain; Additional info: Abd pain, HX diverticulitis TECHNIQUE: Imaging protocol: Computed tomography of the abdomen and pelvis with contrast. Radiation optimization: All CT scans at this facility use at least one of these dose optimization techniques: automated exposure control; mA and/or kV adjustment per patient size (includes targeted exams where dose is matched to clinical indication); or iterative reconstruction. Contrast material: ISOVUE; Contrast volume: 75 ml; Contrast route: IV; COMPARISON: CT ABDOMEN PELVIS W CON 10/05/2023 10:21 PM FINDINGS: Lungs: Stable reticulonodular interstitial pattern both lung bases. Diaphragm: Small hiatal hernia. Liver: Fatty infiltration of the liver. Gallbladder and biliary ducts: Previous cholecystectomy. Pancreas: Normal. No ductal dilation. Spleen: Normal. No splenomegaly. Adrenal glands: Normal. No mass. Kidneys and ureters: Normal. No hydronephrosis. Stomach and bowel: Moderate grade small bowel obstruction with distension and fluid levels. Transition zone likely in the right lower quadrant with short-segment of small bowel wall thickening just proximal to bowel anastomosis. Colonic diverticulosis without CT evidence of diverticulitis. Appendix: No evidence of appendicitis. Intraperitoneal space: Unremarkable. No free air. No significant fluid collection. Vasculature: Acute pulmonary emboli are evident within segmental arteries to the right lower lobe. Dedicated CTA chest necessary. Lymph nodes: Unremarkable. No enlarged lymph nodes. Urinary bladder: Unremarkable as visualized. Reproductive: Unremarkable as visualized. Bones/joints: Unremarkable. No acute fracture. Soft tissues: Unremarkable. IMPRESSION: 1. Acute pulmonary emboli are evident within segmental arteries to the right lower lobe. Dedicated CTA chest necessary. 2. Moderate grade small bowel obstruction with distension and fluid levels. Transition zone likely in the right lower quadrant with short-segment of small bowel wall thickening just proximal to bowel anastomosis.
[2024-05-22] MEDS: LACTATED RINGERS 1000ML 1,000 ML 999 ML IV (10:10)
[2024-05-22] MEDS: MORPHINE 4MG/ML SYRINGE 4 MG IV (10:10)
[2024-05-22] MEDS: ONDANSETRON 4MG/2ML VIAL 4 MG IV ×2 (10:10→11:12)
[2024-05-22 10:34] LABS: Basophils # 0.1 K/mm3 (0-0.2); Basophils % 0.3 % (0.1-2.0); Eosinophils # 0.1 K/mm3 (0.0-0.4); Eosinophils % 0.6 % (0.1-12.0); Hematocrit 48.5 % (42.0-52.0); Hemoglobin 16.2 g/dL (14.1-18.0); Lymphocytes # 0.8 K/mm3 (0.7-4.5); Lymphocytes % 4.7 % (10-50); Mean Corpuscular HGB Conc 33.4 g/dL (31.8-35.4); Mean Corpuscular Hemoglobin 29.2 pg (27.0-31.2); Mean Corpuscular Volume 87.4 fl (80-94); Monocytes # 0.5 K/mm3 (0.1-1.0); Neutrophils # 15.9 K/mm3 (1.8-7.8); Neutrophils % 91.5 % (37.0-80.0); Platelet Count 307 K/mm3 (142-424); Red Blood Count 5.55 M/mm3 (4.60-6.20); Red Cell Distribution Width 14.9 % (11.5-17.5); White Blood Count 17.4 K/mm3 (4.8-10.8)
[2024-05-22 10:38] LABS: Albumin Level 4.6 g/dl (3.5-5.0); Chloride 106 mmol/L (98-107); Potassium 4.3 mmoL/L (3.5-5.1); Sodium 140 mmol/L (136-145)
[2024-05-22 10:40] LABS: Blood Urea Nitrogen 13 mg/dl (9-20); Creatinine Clearance Estimated 56 mL/min (50-200); Estimated Glomerular Filt Rate 58 ml/min (>60); GFR (African American) 70 ML/MIN (>60)
[2024-05-22 10:41] LABS: Alanine Aminotransferase 31 U/L (12-78); Albumin/Globulin Ratio 1.6 (1.1-1.8); Alkaline Phosphatase 72 U/L (38-126); Anion Gap 12.3 mEq/L (5-15); Aspartate Amino Transferase 31 U/L (17-59); Bilirubin,Total 0.8 mg/dl (0.2-1.3); Calcium 9.6 mg/dl (8.4-10.2); Carbon Dioxide 26 mmol/L (22.0-30.0); Globulin 2.9 g/dL (1.3-3.2); Glucose 128 mg/dl (74-100); Lipase 39 U/L (23-300); Total Protein,Serum 7.5 g/dl (6.3-8.2)
[2024-05-22 10:44] LABS: MANUAL DIFFERENTIAL MANUAL DIFFERENTIAL (MANUAL DIFF)
[2024-05-22] MEDS: IOPAMIDOL-370 (76%);100ML BOTTLE 75 ML IV (11:19)
[2024-05-22] MEDS: SODIUM CHLORIDE 0.9% 10ML SYR (RAD ONLY) 10 ML IV ×2 (11:19→12:01)
[2024-05-22 11:34] LABS: Lymphocytes % 5 % (10-50); Monocytes % 3 % (2-9); Neutrophils % 91 % (42-76); Total Cells Counted 100
[2024-05-22 11:35] LABS: Platelet Estimate Normal; RBC Morphology Normal
--- NOTE | 2024-05-22 11:38 | CT_ITS ---
PROCEDURE INFORMATION: Exam: CTA Chest With Contrast Exam date and time: 05/22/2024 11:46 AM Age: 53 years old Clinical indication: Cough; Additional info: Pe TECHNIQUE: Imaging protocol: Computed tomographic angiography of the chest with contrast. Exam focused on the arteries. 3D rendering (Not supervised by radiologist): MIP and/or 3D reconstructed images were created by the technologist. Radiation optimization: All CT scans at this facility use at least one of these dose optimization techniques: automated exposure control; mA and/or kV adjustment per patient size (includes targeted exams where dose is matched to clinical indication); or iterative reconstruction. Contrast material: ISOVUE 370; Contrast volume: 70 ml; Contrast route: INTRAVENOUS (IV); COMPARISON: CT ANGIO NECK 06/30/2022 9:12 AM FINDINGS: Pulmonary arteries: Acute pulmonary emboli within segmental branches to the right lower lobe, compatible with moderate embolism burden. Aorta: Unremarkable. No aortic aneurysm. No aortic dissection. Lungs: Reticulonodular interstitial pattern within the mid and lower lung zones. No focal consolidation. Minimal right basilar atelectasis, may be small pulmonary infarct. 5 mm pulmonary nodule within the left upper lobe (series 8, image 161). Pleural spaces: Unremarkable. No pneumothorax. No pleural effusion. Heart: Unremarkable. No cardiomegaly. No pericardial effusion. RV/LV ratio measures 0.73. Lymph nodes: Unremarkable. No enlarged lymph nodes. Intestine: Small bowel obstruction partially visualized as detailed on CT abdomen same day. Bones/joints: Partial fusion of multiple thoracic vertebral bodies. No acute fracture. Soft tissues: Unremarkable. IMPRESSION: 1. Acute pulmonary emboli within segmental branches to the right lower lobe, compatible with moderate embolism burden. 2. Small bowel obstruction partially visualized as detailed on CT abdomen same day. 3. Minimal right basilar atelectasis, may be small pulmonary infarct. 4. 5 mm pulmonary nodule left upper lobe. Recommend follow-up as indicated. Acute findings already communicated to ordering physician at time of CT abdomen. FLEISCHNER CRITERIA FOR MANAGEMENT OF PULMONARY NODULES Low Risk Patients: <6mm, no follow-up 6-8mm, 6-12 month follow-up >8mm, CT @ 3, months, PET/CT or biopsy High Risk Patients: <6mm, follow-up 12 months 6-8mm, 6-12 month then 18-24 month follow-up >8mm, same as for low risk References: Sweetie Joaquin et al. Guidelines for Management of Incidental Pulmonary Nodules Detected on CT Images: From the Fleischner Society 2017. Radiology. 2017;284(1):228-243.
--- NOTE | 2024-05-22 11:44 | PC.NURSE ---
Dr. Rosas speaking with Dr. Novak
--- NOTE | 2024-05-22 11:48 | PC.NURSE ---
Pt gone to RAD via wheelchair
--- NOTE | 2024-05-22 12:00 | PC.NURSE ---
spoke to about admission, prefers to transfer to another facility for higher level of care
[2024-05-22] MEDS: 0.9 % SODIUM CHLORIDE 50 ML VIAL IV (12:01)
[2024-05-22] MEDS: IOPAMIDOL-370 (76%);100ML BOTTLE 70 ML IV (12:01)
--- NOTE | 2024-05-22 12:01 | PC.NURSE ---
Pt returned from RAD
--- NOTE | 2024-05-22 12:28 | PC.NURSE ---
call made to RAD for update on CHEST CTA final report, scan is being read currently
--- NOTE | 2024-05-22 12:38 | PC.NURSE ---
CALLED [facility] PER DOC GIA FOR GENERAL SURGEON REFORMATORY ATTENDANT
--- NOTE | 2024-05-22 12:38 | PC.NURSE ---
spoke with peyman reich with [facility], there is no right heart strain on the CHEST CTA.
[2024-05-22 12:53] LABS: INR 0.91 (0.9-1.1); Prothrombin Time 10.3 seconds (10.1-12.5)
[2024-05-22 12:53] LABS: Lactic Acid 1.2 mmol/L (0.7-2.1)
[2024-05-22 13:12] LABS: Activated Partial Thrombo Time 24.5 seconds (22.8-30.6)
--- NOTE | 2024-05-22 13:25 | PC.NURSE ---
Dr. Rosas speaking with Dr. Crane at [facility]
--- NOTE | 2024-05-22 13:30 | PC.NURSE ---
PT accepted to [facility] by Dr. Crane
--- NOTE | 2024-05-22 13:31 | ECG_ITS ---
APPROVED REPORT Exam: Resting ECG HR:71 bpm ECG Measurements Heart Rate 71 AXES AZ 156 P 33 QRSd 86 QRS 24 QT 385 T 46 QTc 408 Conclusion SINUS RHYTHM MINIMAL VOLTAGE CRITERIA FOR LVH, CONSIDER NORMAL VARIANT [MEETS CRITERIA IN ONE OF: R(aVL), S(V1), R(V5), R(V5/V6)+S(V1)] BORDERLINE ECG Electronically signed by : BHARATI WALSH, 05/22/2024 16:19:43
--- NOTE | 2024-05-22 13:41 | PC.NURSE ---
[facility] called [facility], faxed at this time. Currently no bed is available but they are expecting dc today. Will call back with a room assignment when available.
--- NOTE | 2024-05-22 13:46 | PC.NURSE ---
I spoke with Alistair POMPA, he is going to update the dose of heparin and verify it.
[2024-05-22] MEDS: HEPARIN SODIUM 5,000 UNIT/ML VIAL 4700 UNIT IV (13:48)
[2024-05-22] MEDS: HEPARIN SODIUM,PORCINE/D5W 500 ML 22 UNIT IV (13:49)
--- NOTE | 2024-05-22 13:53 | PC.NURSE ---
updated family and pt on poc
[2024-05-22] MEDS: PROMETHAZINE HCL 25MG/ML 1ML VIAL 12.5 MG IV (15:01)
[2024-05-22] MEDS: ACETAMINOPHEN 500MG TAB 1000 MG PO (15:01)
--- NOTE | 2024-05-22 15:01 | PC.NURSE ---
Addendum entered by Gilberto Hager RN 05/22/24 15:16: [facility] not [facility] bed at this time. Original Note: [facility] states [facility] have bed opened at this time
--- NOTE | 2024-05-22 15:36 | XR_ITS ---
PROCEDURE INFORMATION: Exam: XR Abdomen Exam date and time: 05/22/2024 3:38 PM Age: 53 years old Clinical indication: Device placement; Gi device; Nasogastric tube; Additional info: Ng tube TECHNIQUE: Imaging protocol: Radiologic exam of the abdomen. Views: Frontal supine view of the abdomen. 1 View. COMPARISON: CT ABDOMEN PELVIS W CON 05/22/2024 11:07 AM FINDINGS: Tubes, catheters and devices: NG tube to the stomach, directed left laterally. Gastrointestinal tract: Mild gaseous distension of bowel loops in the left abdomen. Bones/joints: Unremarkable. IMPRESSION: 1. NG tube to the stomach, directed left laterally. 2. Mild gaseous distension of bowel loops in the left abdomen.
--- NOTE | 2024-05-22 15:36 | PC.NURSE ---
Dr. Gonzalez at [facility] to see pt
[2024-05-22 16:02] LABS: Troponin I < 0.01 ng/ml (0.00-0.034)
[2024-05-22] MEDS: LIDOCAINE 2% UROJET 10ML TP (16:18)
[2024-05-22] MEDS: LIDOCAINE 2% VISCOUS SOL 15ML UDC 15 ML PO (16:18)
--- NOTE | 2024-05-22 16:27 | PC.NURSE ---
CALLED [facility], TRANSFER CENTER STATES THEY WILL [facility] SURGERY BUT IF THE FACILITY IS STILL ON WAITLIST THEY DO NO PLACE [facility]BO ON WAITLIST AWARE
--- NOTE | 2024-05-22 17:08 | EXP.MED.CON ---
History of Present Illness *Admission Date: 05/22/24 *Reason for visit:: Nausea and vomiting *History of present illness: Mr. Mckinney is a 53-year-old male with history of appendectomy and partial colectomy after having severe diverticulitis. Presented to the ER with onset of abdominal pain and nausea and vomiting overnight. States he did not see if there was blood or coffee grounds in his emesis. Also had 2 small loose stools in the past 24 hours. Presented to the ER because of pain and nausea and vomiting. He also complains of shortness of breath with exertion over the past month. States that he would get easily winded with any type of activity. Fall asleep easily sitting on the couch. Has just not felt himself. Denies any chest pain, fever, syncope or altered mental status. On arrival to the ER, workup was initiated with CTA of the chest and CT of the abdomen. Abdominal CT showed moderate obstruction at his anastomosis from his previous gastric surgery. Had distended loops of bowel with air-fluid levels. Also noted to have inflammation and thickening at the anastomosis. Additionally found to have right lower lobe PE that is acute in nature. White count elevated at 15.4. Kidney function with creatinine of 1.3, BUN 13. Surgery was consulted and recommended transfer given complexity of patient with both his medical and surgical needs. Medicine consulted for evaluation and further recommendations while awaiting transport. [facility] Disclaimer: The information contained in this section may have been updated after the patient was seen, as this information can be updated by other users. Medical History (Updated 05/22/24 @ 17:12 by Quentin Gonzalez MD) History of diverticulitis Elevated bilirubin Pneumoperitoneum of unknown etiology Elevated liver enzymes Elevated blood pressure reading in office without diagnosis of hypertension Abnormal result of cardiovascular function study Dizziness Dyspnea Syncope Vasovagal syncope Gastroesophageal reflux disease SIRS (systemic inflammatory response syndrome) Small bowel obstruction Surgical History (Updated 05/22/24 @ 17:12 by Quentin Gonzalez MD) Hx of colectomy H/O exploratory laparotomy History of appendectomy Hx of cholecystectomy Social History Smoking Status: Current every day smoker alcohol intake: former substance use type: denies use current occupational status: employed Travel in the last 8 weeks: None housing: house Review of Systems Review of Systems Review of systems (narrative): 14 point review of systems performed, pertinent positives and negatives as per HPI Exam Data for Last 24 hours Vital signs and Labs for Last 24 Hours: Temp Pulse Resp BP Pulse Ox O2 Del Method 98.1 F 89 19 131/85 98 Room Air 05/22/24 09:40 05/22/24 16:30 05/22/24 09:40 05/22/24 16:30 05/22/24 16:30 05/22/24 16:30 Laboratory Results - last 24 hr 05/22/24 09:45: WBC 17.4 H, RBC 5.55, Hgb 16.2, Hct 48.5, MCV 87.4, MCH 29.2, MCHC 33.4, RDW 14.9, Plt Count 307, MPV 9.0, Neut % (Auto) 91.5 H, Lymph % (Auto) 4.7 L, [place] % (Auto) 3.0, Eos % (Auto) 0.6, Baso % (Auto) 0.3, Neut # (Auto) 15.9 H, Lymph # (Auto) 0.8, [place] # (Auto) 0.5, Eos # (Auto) 0.1, Baso # (Auto) 0.1, Total Counted 100, Neutrophils % (Manual) 91 H, Band Neutrophils % 1.0, Lymphocytes % (Manual) 5 L, Monocytes % (Manual) 3, Platelet Estimate Normal, RBC Morphology Normal, PT 10.3, INR 0.91, APTT 24.5, Sodium 140, Potassium 4.3, Chloride 106, Carbon Dioxide 26, Anion Gap 12.3, BUN 13, Creatinine 1.30 H, Estimated Creat Clear 56, Estimated GFR 58 L, Est GFR ( Amer) 70, Glucose 128 H, Calcium 9.6, Total Bilirubin 0.8, AST 31, ALT 31, Alkaline Phosphatase 72, Total Protein 7.5 D, Albumin 4.6, Globulin 2.9, Albumin/Globulin Ratio 1.6, Lipase 39 05/22/24 12:25: Lactate 1.2 05/22/24 15:19: Troponin I < 0.01 I & O for Last 24 hours: Intake & Output 05/19/24 05/20/24 05/21/24 05/22/24 23:59 23:59 23:59 23:59 Weight 58.967 kg Constitutional Constitutional: no acute distress, thin and cooperative *Routine HEENT Exam Head: Present normocephalic Eye: Present EOMI and PERRL ENT: Present mucous membranes moist Comments: Epistaxis from right nostril secondary to trauma from NG. NG in place in right nostril *Routine Neck Exam Neck: Present supple; Absent lymphadenopathy *Routine Respiratory Exam Respiratory: Present CTA bilaterally; Absent rhonchi, wheezes or crackles *Routine Cardiovascular Exam Cardiovascular: Present RRR *Routine Abdominal Exam Abdominal: Present soft and tenderness (Mild diffuse tenderness); Absent normoactive bowel sounds, distended or rebound *Routine Rectal Exam Patient deferred: visual exam *Routine Exam Patient deferred: penile exam *Routine Extremities Exam Extremities: Absent cyanosis, clubbing or edema *Routine Skin Exam Skin: Present intact and warm; Absent rash *Routine Neurological Exam Neurological: Present alert, oriented X3 and moving all extremities; Absent altered mental status Meds Home Medications and Allergies Home Medications ?Medication ?Instructions ?Recorded ?Confirmed ?Type amoxicillin 875 mg-potassium 1 tab PO BID 5 days #10 tabs 10/07/23 Rx clavulanate 125 mg tablet New Prescriptions to Start Prescriptions: Allergies Allergy/AdvReac Type Severity Reaction Status Date / Time No Known Allergies Allergy Verified 10/03/22 15:05 Results Labs 05/22/24 09:45 05/22/24 09:45 Labs: Abnormal lab results 05/22/24 Range/Units 09:45 WBC 17.4 H (4.8-10.8) K/mm3 Neut % (Auto) 91.5 H (37.0-80.0) % Lymph % (Auto) 4.7 L (10-50) % Neut # (Auto) 15.9 H (1.8-7.8) K/mm3 Neutrophils % (Manual) 91 H (42-76) % Lymphocytes % (Manual) 5 L (10-50) % Creatinine 1.30 H (0.66-1.25) mg/dl Estimated GFR 58 L (>60) ml/min Glucose 128 H (74-100) mg/dl H & H 05/22/24 Range/Units 09:45 Hgb 16.2 (14.1-18.0) g/dL Hct 48.5 (42.0-52.0) % Coagulation 05/22/24 Range/Units 09:45 INR 0.91 (0.9-1.1) All other labs normal. Assessment and Plan *Assessment and plan (1) Pulmonary embolism: Status: Acute Category: Medical Code(s): I26.99 - Other pulmonary embolism without acute cor pulmonale (2) SBO (small bowel obstruction): Status: Acute Category: Medical Code(s): K56.609 - Unspecified intestinal obstruction, unspecified as to partial versus complete obstruction (3) History of diverticulitis: Status: Acute Category: Medical Code(s): Z87.19 - Personal history of other diseases of the digestive system (4) History of bowel resection: Status: Acute Category: Surgical Code(s): Z90.49 - Acquired absence of other specified parts of digestive tract Plan 53-year-old male with history of bowel resection who presents with nausea vomiting. Found to have moderate bowel obstruction at his anastomosis with inflammation of the anastomosis. Also found to have PE necessitating acute treatment. ER attempted transfer at the request of surgery. Patient currently awaiting for transfer to [place] as this is the facility he would prefer to go to given his previous care. Has been accepted for transfer, awaiting a bed. Discussed case with ER physician, request evaluation to assist with medical management. Patient has been initiated on heparin drip for his PE. NG in place to decompress abdomen given acute obstruction in the small bowel. Recommend continued NG management to low wall suction. N.p.o. for the time being. -Zofran 4 mg as needed every 6 hours for nausea and vomiting -Would benefit from Chloraseptic spray as needed for irritation from NG to the back of his throat -Given obstruction at site of previous surgery, would benefit from evaluation by colorectal surgeon as he is at high risk for needing revisional surgery/repeat laparotomy In regard to PE, agree with heparin drip at this time. Pharmacy to assist with management. PTT pending for further adjustment. Will need close monitoring and adjustments to his heparin dosing to maintain therapeutic status. Caution with over anticoagulation in setting of NG being in place, increased risk for bleeding. Pending management of bowels, would recommend transition to DOAC such as Eliquis for further management. This is patient's first episode of PE, does not appear to have a provoking incident. Denies any recent travel. No known history of malignancy. Recommend workup for malignancy, screening for COVID, and evaluation for coagulopathy Supplemental oxygen as needed, goal sats greater 90% Thank you for the opportunity to consult on this patient. Will continue to follow along while he is awaiting transfer
--- NOTE | 2024-05-22 17:19 | PC.NURSE ---
pt states he does not want me to refuse him for covid at this time. aware
[2024-05-22 17:22] LABS: PTT Heparin (inpatient only) 75.7 Seconds (50-75)
--- NOTE | 2024-05-22 17:26 | PC.NURSE ---
spoke with chayito from [facility] who states to not change heparin drip at this time, chayito will put in the redraw for the next ptt.
--- NOTE | 2024-05-22 17:32 | PC.NURSE ---
Nico from [facility] called to check on pt, nico states that they are still working on getting pt a bed
--- NOTE | 2024-05-22 17:32 | PC.NURSE ---
[facility] STATES THEY HAVE NO BEDS AT THIS TIME AND DO NOT FEEL COMFORTABLE PLACING PT ON LIST WITH A SBO
[2024-05-22 18:47] LABS: PTT Heparin (inpatient only) 65.7 Seconds (50-75)
--- NOTE | 2024-05-22 18:47 | PC.NURSE ---
report called to kevan on 3E at [facility]
--- NOTE | 2024-05-22 19:08 | PC.NURSE ---
spoke with chayito from [facility], PTT is within range, do not change rate.
--- NOTE | 2024-05-22 20:38 | PC.NURSE ---
[facility] arrived for patient transport to [facility]. Report to Kamila Traffic Control Supervisor.
== END 2024-05-22 20:58 | disposition other institution (70) ==
PROVIDERS: Emergency Medicine; Emergency Provider Emergency Medicine; PCP Internal Medicine
DX: I26.99 Other pulmonary embolism without acute cor pulmonale (principal); K56.609 Unspecified intestinal obstruction, unspecified as to partial versus complete obstruction; R10.0 Acute abdomen; R11.2 Nausea with vomiting, unspecified; K21.9 Gastro-esophageal reflux disease without esophagitis; Z87.19 Personal history of other diseases of the digestive system; Z90.49 Acquired absence of other specified parts of digestive tract
CPT/HCPCS: 71275; 74018; 74177; 80053; 83605; 83690; 84484; 85007; 85025; 85027; 85610; 85730; 93005; 96361; 96365; 96366; 96375; 96376; 99285; J1644; J2270; J2405; J2550; J7120; Q9967

== ENCOUNTER 2024-07-30 09:42 | Emergency (ER) | payer SELFPAY ==
[2024-07-30 10:19] VITALS: BP 139/89; PULSE 95; RESP 20; TEMP 37.1; O2SAT 98; BMI 21.2
--- NOTE | 2024-07-30 10:24 | EXP.UTC ---
Discharge Plan Disposition Patient Disposition: Home, Self-Care Condition: Good Prescriptions Prescriptions: New ciprofloxacin HCl [Cipro] 250 mg tablet 250 mg PO Q12H 7 Days Qty: 14 0RF No Action omeprazole 10 mg Capsule,Delayed Release(Dr/Ec) 10 mg PO DAILY Eliquis 2.5 mg Tablet 2.5 mg PO AC Referrals Follow up/Referrals: Raúl Castro DO [Primary Care Provider] - See instructions Activity Restrictions/Add. Instructions Additional Instructions/Restrictions: Take medication as prescribed. Increase fluids. If symptoms persist or worsen, follow up with PCP or return to clinic. Call back in 2-3 days for STI testing results. Clinical Impressions Clinical Impression: Urinary tract infection Qualifiers: Urinary tract infection type: acute cystitis Hematuria presence: with hematuria Qualified Code(s): N30.01 - Acute cystitis with hematuria Instructions Patient Instructions: DI for Urinary Tract Infection (UTI) Print Language Print Language: Welsh Discharge ED Provider: Karrie Clark [facility] HPI General Stated complaint: painful urination, right shoulder/bicept pain Mode of Arrival: Ambulatory Source of Information: Patient Time Seen by Provider: 07/30/24 10:24 Description of Symptoms (Recalled from Triage Doc. by RN): TIP OF PENIS HURTS WHEN HE PEES X3 WEEKS , DENIES OTHER URINARY ISSUES, DENIES STI EXPOSURE. STATES FEVER YESTERDAY. ALSO C/O SHOULDER PAIN WHEN ARM IS OVER HIS HEAD X 1 YEAR HEENT Symptoms (Recalled from RN notes): No Resp Symptoms (Recalled from RN notes): No Skin Symptoms (Recalled from RN notes): No MS Symptoms (Recalled from RN notes): Yes Functional Status (Recalled from RN notes): WNL History of Present Illness Provider Complaint: Pt reports that he has had pain at the tip of his penis with urination. Pt states that he had urinated blood at the beginning of his symptoms 3 weeks ago and then started taking AZO and now he is peeing a lot but pain is only at the tip of the penis with urination. Pt reports that the pain in his right arm with moving heavy stuff is not in any joint but in the bicep. He reports that he is left handed and rarely uses his right arm, but when he does the muscle will ache. Related Data Home Medications ?Medication ?Instructions ?Recorded ?Confirmed apixaban 2.5 mg tablet (Eliquis) 2.5 mg PO AC 10/12/24 10/12/24 omeprazole 10 mg capsule,delayed 10 mg PO DAILY 07/30/24 07/30/24 release Previous Rx's ?Medication ?Instructions ?Recorded ciprofloxacin HCl 250 mg tablet 250 mg PO Q12H 7 days #14 tabs 07/30/24 (Cipro) Allergies Allergy/AdvReac Type Severity Reaction Status Date / Time No Known Allergies Allergy Verified 10/03/22 15:05 Worker's Comp Is this a Worker's Comp case?: [facility] Dis[facility]: The information contained in this section may have been updated after the patient was seen, as this information can be updated by other users. Medical History (Updated 07/30/24 @ 12:11 by Karrie Clark APRN) History of diverticulitis Elevated bilirubin Pneumoperitoneum of unknown etiology Elevated liver enzymes Elevated blood pressure reading in office without diagnosis of hypertension Abnormal result of cardiovascular function study Dizziness Dyspnea Syncope Vasovagal syncope Gastroesophageal reflux disease SIRS (systemic inflammatory response syndrome) Small bowel obstruction Surgical History (Updated 05/22/24 @ 17:12 by Quentin Gonzalez MD) Hx of colectomy H/O exploratory laparotomy History of appendectomy Hx of cholecystectomy Social History Smoking Status: Current every day smoker alcohol intake: former substance use type: denies use current occupational status: employed Travel in the last 8 weeks: None housing: house ROS Obtained: Yes All systems reviewed & no additional complaints except as documented Constitutional Constitutional: Reports system reviewed and no additional complaints, except as documented and Reports fever(s) Eyes Eyes: Reports system reviewed and no additional complaints, except as documented ENT Ears, Nose, Mouth, and Throat: Reports system reviewed and no additional complaints, except as documented Cardiovascular Cardiovascular: Reports system reviewed and no additional complaints, except as documented Respiratory Respiratory: Reports system reviewed and no additional complaints, except as documented Gastrointestinal Gastrointestingal: Reports system reviewed and no additional complaints, except as documented Genitourinary Male Genitourinary: Reports system reviewed and no additional complaints, except as documented, Reports genital pain, Reports hematuria and Reports urinary frequency Comments: pain at the tip of his penis with urination Musculoskeletal Musculoskeletal: Reports system reviewed and no additional complaints, except as documented and Reports myalgias Integumentary/Breasts Skin/Breast: Reports system reviewed and no additional complaints, except as documented Neurologic Neurologic: Reports system reviewed and no additional complaints, except as documented Endocrine Endocrine: Reports system reviewed and no additional complaints, except as documented Hematologic/Lymphatic Henatologic/Lymphatic: Reports system reviewed and no additional complaints, except as documented Allergic/Immunologic Allergic/Immunologic: Reports system reviewed and no additional complaints, except as documented Physical Exam General General appearance: alert and in no apparent distress Head Head exam: atraumatic and normocephalic Eye Eye exam: Present normal appearance ENT ENT exam: Present normal exam and normal oropharynx Neck Neck exam: Present normal inspection Chest Chest inspection: Present normal inspection and symmetric chest wall rise Respiratory Respiratory exam: Present normal lung sounds bilaterally Cardiovascular Cardiovascular exam: Present regular rate and normal rhythm Abdominal Exam Abdominal exam: Present soft and normal bowel sounds; Absent distention, tenderness or guarding Extremities Exam Extremities exam: Present normal inspection, full ROM and normal capillary refill; Absent tenderness, edema or joint swelling Back Exam Back exam: Present normal inspection; Absent CVA tenderness (R) or CVA tenderness (L) Neurological Exam Neurological exam: Present alert and oriented X3 Psychiatric Psychiatric exam: Present normal affect and normal mood Skin Skin exam: Present warm, dry and intact Lymphatic Lymphatic Findings: no adenopathy Medical Decision Making Medical Records Screening: Per USPSTF and CDC recommendations, given the prevalence of disease in our region, it is our hospital?s policy to screen for HIV and viral Hepatitis for all patients aged 18 and over and those with ongoing risk factors. Sg Inquiry Pt receiving controlled substance: No Sg was queried for this patient: No Vital Signs: 07/30/24 10:19 Temperature 98.7 F Temperature Source Oral Pulse Rate [Left Radial] 95 H Respiratory Rate 20 Blood Pressure [Left Arm] 139/89 Blood Pressure Mean [Left Arm] 105 02 Sat by Pulse Oximetry 98
[2024-07-30 11:30] LABS: Microscopic, Urine URINE MICROSCOPIC (MICROSCOPIC)
[2024-07-30 11:35] LABS: Appearance,Urine CLEAR (Clear); Bilirubin,Urine Negative (Negative); Blood, Urine 2+ (Negative); Color,Urine YELLOW (Yellow); Glucose,Urine (UA) Negative (Negative); Ketones,Urine TRACE (Negative); Leukocyte Esterase,Urine 3+ (Negative); Nitrate,Urine POSITIVE (Negative); Protein,Urine TRACE (Negative); Specific Gravity, Urine 1.025 (1.005-1.030)
[2024-07-30 11:39] LABS: Bacteria,Urine 1+ /lpf
[2024-07-30 12:24] VITALS: BP 139/89; PULSE 95; RESP 20; TEMP 37.1
--- NOTE | 2024-08-01 14:20 | PC.NURSE ---
REVIEWED PATIENT'S URINE CULTURE WITH Tatianna MARRERO APRN. NO CHANGES NEEDED AT THIS TIME
[2024-08-02 02:30] LABS: Neisseria gonorrhoeae, NAA Negative (Negative); Trichomonas Vaginalis, NAA Negative (Negative)
== END 2024-07-30 12:25 | disposition home or self-care (01) ==
PROVIDERS: Emergency Provider Nurse Practitioner Family; PCP Internal Medicine
DX: N30.01 Acute cystitis with hematuria (principal)
CPT/HCPCS: 81001; 87086; 87088; 87186; 87491; 87591; 87661; 99213; G0381